=== PATIENT | female | born 1970 | race Caucasian/White ===

== ENCOUNTER 2016-10-26 15:30 | Emergency (ER) | payer OTHER ==
[2016-10-26 15:39] VITALS: BP 98/56; PULSE 83; TEMP 98.1; BMI 30.8
[2016-10-26] MEDS ORDERED: SODIUM CHLORIDE 1,000 ML IV STA ×2 (16:26→17:42)
[2016-10-26] MEDS ORDERED: FAMOTIDINE 20 MG/50 ML IVPB 50 ML IVPB ONE ×2 (16:26→16:51)
[2016-10-26] MEDS ORDERED: ONDANSETRON 4 MG/2 ML VIAL IVPB ONE (16:26)
[2016-10-26] MEDS ORDERED: ONDANSETRON 4 MG/2 ML VIAL ONE (16:51)
--- NOTE | 2016-10-26 17:03 | PDOC ---
History of Present Illness - General History Source: Patient Exam Limitations: No Limitations - History of Present Illness Initial Comments: 10/26/16 17:54 The patient is a 46 year old female, with a significant past medical history of recent gastric sleeve (May 2016 - [facility]), anxiety and depression, who presents to the emergency department with generalized weakness worsening in the past two days. The patient reports feeling nauseous in addition to a decreased appetite. The patient reports a 90 lb weight loss since her surgery. The patient reports 3 ER visits for similar symptoms since her gastric sleeve surgery. The patient reports that she was driving today and felt particularly weak so she came to the ED for evaluation. The patient denies fever , chills, cough, vomiting or abdominal pain. Allergies: Doxycycline. Past Surgical History: Cholecystectomy; Partial Hysterectomy; Gastric Sleeve ( May 2016) Social History: Former smoker (quit in 2002). Denies alcohol or drug use. PCP: Dr. Hardy Diehl <Kerry Bui - Last Filed: 10/26/16 17:57> - General History Source: Patient Exam Limitations: No Limitations <Luciano Tesfaye - Last Filed: 10/26/16 18:49> - General Chief Complaint: Weakness Stated Complaint: SENT BY PCP Time Seen by Provider: 10/26/16 16:09 Past History <Kerry Bui - Last Filed: 10/26/16 17:57> - Past Medical History Anemia: Yes Asthma: No Cancer: No Cardiac Disorders: No CVA: No COPD: No CHF: No Dementia: No Diabetes: No GI Disorders: Yes (GERD) Disorders: Yes (HEMATURIA) HTN: No Hypercholesterolemia: No Liver Disease: No Psychiatric Problems: Yes (ANXIETY/DEPRESSION) Suicide Attempt (Hx): No Seizures: No Thyroid Disease: No - Surgical History Abdominal Surgery: Yes Appendectomy: No Cardiac Surgery: No Cholecystectomy: Yes (2004) GI Surgery: Yes (GASTRIC SLEEVE-06/13) Lung Surgery: No Neurologic Surgery: No Orthopedic Surgery: No - Immunization History Immunization Up to Date: Yes - Psycho/Social/Smoking Cessation Hx Anxiety: Yes Suicidal Ideation: No Smoking Status: Yes Smoking History: Current some day smoker Have you smoked in the past 12 months: No Number of Cigarettes Smoked Daily: 0 If you are a former smoker, when did you quit?: 2002 Information on smoking cessation initiated: No Hx Alcohol Use: No Drug/Substance Use Hx: No Substance Use Type: None Hx Substance Use Treatment: No <Luciano Tesfaye - Last Filed: 10/26/16 18:49> - Past Medical History Allergies/Adverse Reactions: Allergies Allergy/AdvReac Type Severity Reaction Status Date / Time doxycycline Allergy Rash Verified 10/26/16 15:34 Home Medications: Ambulatory Orders Clonazepam 2 mg PO BID 03/13/14 Quetiapine Fumarate [Seroquel -] 50 mg PO BID 04/26/14 Naproxen [Naprosyn -] 500 mg PO BID #14 tablet 12/13/14 Cephalexin [Keflex] 500 mg PO BID #14 capsule 10/26/16 Ferrous Sulfate 325 mg PO DAILY 10/26/16 Lexapro - 20 mg PO DAILY 10/26/16 Ondansetron HCl [Zofran] 4 mg PO Q6H PRN #15 tablet 10/26/16 Pantoprazole Sodium [Protonix] 40 mg PO DAILY 10/26/16 Vitamin A 10,000 iu PO DAILY 10/26/16 Review of Systems - Review of Systems Able to Perform ROS?: Yes Comments:: 10/26/16 17:07 GENERAL/CONSTITUTIONAL: +Weakness, decreased appetite. No fever or chills. HEAD, EYES, EARS, NOSE AND THROAT: No change in vision. No ear pain or discharge. No sore throat. CARDIOVASCULAR: No chest pain or shortness of breath. RESPIRATORY: No cough, wheezing, or hemoptysis. GASTROINTESTINAL: +Nausea. No vomiting, diarrhea or constipation. GENITOURINARY: No dysuria, frequency, or change in urination. MUSCULOSKELETAL: No joint or muscle swelling or pain. No neck or back pain. SKIN: No rash. NEUROLOGIC: No headache, vertigo, loss of consciousness, or change in strength/ sensation. ENDOCRINE: No increased thirst. No abnormal weight change. HEMATOLOGIC/LYMPHATIC: No anemia, easy bleeding, or history of blood clots. ALLERGIC/IMMUNOLOGIC: No hives or skin allergy. <Kerry Bui - Last Filed: 10/26/16 17:57> *Physical Exam - Vital Signs Last Vital Signs Temp Pulse Resp BP Pulse Ox 98.1 F 83 19 98/56 98 10/26/16 15:34 10/26/16 15:34 10/26/16 15:34 10/26/16 15:34 10/26/16 15:34 - Physical Exam Comments: 10/26/16 17:07 GENERAL: Awake, alert, and fully oriented, in no acute distress. HEAD: No signs of trauma. EYES: PERRLA, EOMI, sclera anicteric, conjunctiva clear. ENT: Dry mucosa. Auricles normal inspection, hearing grossly normal, nares patent, oropharynx clear without exudates. NECK: Normal ROM, supple, no lymphadenopathy, JVD, or masses. LUNGS: Breath sounds equal, clear to auscultation bilaterally. No wheezes, and no crackles. HEART: Regular rate and rhythm, normal S1 and S2, no murmurs, rubs or gallops. ABDOMEN: Soft, nontender, normoactive bowel sounds. No guarding, no rebound. No masses. EXTREMITIES: Normal range of motion, no edema. No clubbing or cyanosis. No cords, erythema, or tenderness. NEUROLOGICAL: Cranial nerves II through XII intact. Normal speech, normal gait. SKIN: Warm, dry, normal turgor, no rashes or lesions noted. <Kerry Bui - Last Filed: 10/26/16 17:57> - Vital Signs Last Vital Signs Temp Pulse Resp BP Pulse Ox 98.1 F 83 19 98/56 98 10/26/16 15:34 10/26/16 15:34 10/26/16 15:34 10/26/16 15:34 10/26/16 15:34 <Luciano Tesfaye - Last Filed: 10/26/16 18:49> ED Treatment Course - LABORATORY CBC & Chemistry Diagram: 10/26/16 16:20 10/26/16 16:20 - Medications Given in the ED: ED Medications Discontinued Medications Generic Name Dose Route Start Last Admin Trade Name Freq PRN Reason Stop Dose Admin Famotidine/Sodium Chloride 50 mls @ 100 mls/hr 10/26/16 16:26 10/26/16 16:51 Pepcid 20 Mg Premixed Ivpb - IVPB 10/26/16 16:55 100 mls/hr ONCE ONE Administration Ondansetron HCl 4 mg 10/26/16 16:26 10/26/16 16:51 Zofran Injection IVPB 10/26/16 16:27 4 mg ONCE ONE Administration <DanielsEduardaKerry - Last Filed: 10/26/16 17:57> - LABORATORY CBC & Chemistry Diagram: 10/26/16 16:20 10/26/16 16:20 - Medications Given in the ED: ED Medications Discontinued Medications Generic Name Dose Route Start Last Admin Trade Name Deanna PRN Reason Stop Dose Admin Famotidine/Sodium Chloride 50 mls @ 100 mls/hr 10/26/16 16:26 10/26/16 16:51 Pepcid 20 Mg Premixed Ivpb - IVPB 10/26/16 16:55 100 mls/hr ONCE ONE Administration Ondansetron HCl 4 mg 10/26/16 16:26 10/26/16 16:51 Zofran Injection IVPB 10/26/16 16:27 4 mg ONCE ONE Administration <Luciano Tesfaye - Last Filed: 10/26/16 18:49> Medical Decision Making - Medical Decision Making 10/26/16 17:02 A portion of this note was written by my scribe, under my supervision. Vital Signs Temp Pulse Resp BP Pulse Ox 98.1 F 83 19 98/56 98 10/26/16 15:34 10/26/16 15:34 10/26/16 15:34 10/26/16 15:34 10/26/16 15:34 46 year old female with hx of gastric sleeve 4 months ago at [facility] presents with nausea, decreased appetite and weakness worsened in the last several days. The patient has reported that she lost 90 lbs since her gastric sleeve. Reports that she has been eating very little since her surgery. States that he was in the ER 3 times prior since her gastric sleeve for dehydration. Pt denies any abdominal pain, fevers, chills, cough, vomiting. Does reports feeling nauseous. The patient reports feeling generally weak and came into the ED. I suspect that the patient is weak 2/2 dehydration from her gastric sleeve. Will check labs for electrolyte abnormalities and give IVF. Treat symptoms and reassess. 10/26/16 18:42 CBC, BMP 10/26/16 16:20 10/26/16 16:20 CMP Sodium 140 mmol/L (136-145) 10/26/16 16:20 Potassium 3.9 mmol/L (3.5-5.1) 10/26/16 16:20 Chloride 104 mmol/L (98-107) 10/26/16 16:20 Carbon Dioxide 25 mmol/L (21-32) 10/26/16 16:20 Anion Gap 11 (8-16) 10/26/16 16:20 BUN 12 mg/dL (7-18) 10/26/16 16:20 Creatinine 0.7 mg/dL (0.55-1.02) 10/26/16 16:20 Creat Clearance w eGFR > 60 (>60) 10/26/16 16:20 Random Glucose 75 mg/dL (74-106) 10/26/16 16:20 Calcium 8.3 mg/dL (8.5-10.1) L 10/26/16 16:20 Magnesium 1.9 mg/dL (1.8-2.4) 10/26/16 16:20 Total Bilirubin 0.3 mg/dL (0.2-1.0) D 10/26/16 16:20 AST 33 U/L (15-37) 10/26/16 16:20 ALT 20 U/L (12-78) 10/26/16 16:20 Alkaline Phosphatase 84 U/L (45-117) 10/26/16 16:20 Creatine Kinase 67 IU/L (26-192) 10/26/16 16:20 Troponin I < 0.02 ng/ml (0.00-0.05) 10/26/16 16:20 Total Protein 6.6 g/dl (6.4-8.2) 10/26/16 16:20 Albumin 3.1 g/dl (3.4-5.0) L 10/26/16 16:20 TSH 1.44 uIU/ml (0.358-3.74) 10/26/16 16:20 Serum , Qual Negative 10/26/16 16:45 Urine Test Results Urine Color Yellow 10/26/16 16:45 Urine Appearance Slcloudy 10/26/16 16:45 Urine pH 5.0 (5.0-8.0) 10/26/16 16:45 Ur Specific [place] 1.032 (1.001-1.035) 10/26/16 16:45 Urine Protein Negative (NEGATIVE) 10/26/16 16:45 Urine Glucose (UA) Negative (NEGATIVE) 10/26/16 16:45 Urine Ketones Negative (NEGATIVE) 10/26/16 16:45 Urine Blood Negative (NEGATIVE) 10/26/16 16:45 Urine Nitrite Negative (NEGATIVE) 10/26/16 16:45 Urine Bilirubin Negative (NEGATIVE) 10/26/16 16:45 Ur Leukocyte Esterase 3+ (NEGATIVE) H 10/26/16 16:45 The patient reports feeling better after the IV fluids. Pt is noted to have 3+ leuk. Prior microbiology reviewed. Keflex ordered. Will prescribe zofran and have patient follow up with her bariatric surgeon and PMD. Discharge diagnosis: dehydration I discussed the physical exam findings, ancillary test results and final diagnoses with the patient. I answered all of the patient's questions. The patient was satisfied with the care received and felt comfortable with the discharge plan and treatment plan. The patient will call their primary care physician within 24 hours to arrange follow-up and will return to the Emergency Department with any new, persistant or worsening symptoms. <Luciano Tesfaye - Last Filed: 10/26/16 18:49> *DC/Admit/Observation/Transfer - Attestations Scribe Attestion: 10/26/16 17:06 Documentation prepared by Kerry Bui, acting as medical technologist blood bank for Luciano Tesfaye MD. <Kerry Bui - Last Filed: 10/26/16 17:57> <Luciano Tesfaye - Last Filed: 10/26/16 18:49> Diagnosis at time of Disposition: Dehydration UTI (urinary tract infection) Qualifiers: Urinary tract infection type: site unspecified Hematuria presence: without hematuria Qualified Code(s): N39.0 - Urinary tract infection, site not specified - Discharge Dispostion Disposition: HOME Condition at time of disposition: Improved - Prescriptions Prescriptions: Cephalexin [Keflex] 500 mg PO BID #14 capsule Ondansetron HCl [Zofran] 4 mg PO Q6H PRN #15 tablet PRN Reason: Nausea - Referrals Referrals: Alistair Diehl MD [Primary Care Provider] - - Patient Instructions Printed Discharge Instructions: DI for Dehydration -- Adult, DI for Urinary Tract Infection (UTI) Additional Instructions: Take 500 mg keflex every 12 hours for the next 7 days for an urinary tract infection. Take 4 mg zofran every 6 hours as needed for nausea. Please follow up with your bariatric surgeon and your primary care physician.
[2016-10-26 17:54] LABS: BASOPHIL 0.5 % (0-2.0); EOSINOPHIL 1.9 % (0-4.5); MCH 24.8 pg (25.7-33.7); MCHC 32.6 g/dl (32.0-36.0); MEAN CELL VOLUME 76.2 fl (80-96); MEAN PLT VOLUME 9.1 fl (7.5-11.1); NEUTROPHILS 67.2 % (42.8-82.8); PLATELET COUNT 268 K/MM3 (134-434); RDW 16.5 % (11.6-15.6); WHITE BLOOD COUNT 9.5 K/mm3 (4.0-10.0)
[2016-10-26 18:01] LABS: URINE APPEARANCE SLCLOUDY; URINE BILIRUBIN NEGATIVE (NEGATIVE); URINE BLOOD NEGATIVE (NEGATIVE); URINE COLOR YELLOW; URINE GLUCOSE (UA) NEGATIVE (NEGATIVE); URINE KETONE NEGATIVE (NEGATIVE); URINE NITRITE NEGATIVE (NEGATIVE); URINE PROTEIN NEGATIVE (NEGATIVE); URINE UROBILINOGEN NEGATIVE E.U./dl (0.2-1.0)
[2016-10-26 18:08] LABS: INR 1.09 (0.82-1.09)
[2016-10-26 18:11] LABS: ACTIVATED PTT 38.1 SECONDS (26.9-34.4)
[2016-10-26 18:17] LABS: URINE LEUK ESTERASE 3+ (NEGATIVE)
[2016-10-26 18:18] LABS: ALBUMIN 3.1 g/dl (3.4-5.0); ANION GAP 11 (8-16); BILIRUBIN,TOTAL 0.3 mg/dL (0.2-1.0); CALCIUM 8.3 mg/dL (8.5-10.1); CO2 25 mmol/L (21-32); CREATININE 0.7 mg/dL (0.55-1.02); GLUCOSE,RANDOM 75 mg/dL (74-106); MAGNESIUM 1.9 mg/dL (1.8-2.4); SGOT/AST 33 U/L (15-37); SGPT/ALT 20 U/L (12-78); TOT PROT 6.6 g/dl (6.4-8.2)
[2016-10-26 18:26] LABS: ALK PHOS 84 U/L (45-117); THYROID STIMULATING HORMONE 1.44 uIU/ml (0.358-3.74); TROPONIN I < 0.02 ng/ml (0.00-0.05)
[2016-10-26] MEDS ORDERED: CEPHALEXIN MONOHYDRATE 500 MG CAPSULE (UD) PO ONE (18:40)
[2016-10-26] MEDS ORDERED: CEPHALEXIN MONOHYDRATE 250 MG CAPSULE (FP) ONE (19:03)
[2016-10-27 00:15] LABS: CALCIUM OXALATE CRYSTALS FEW /hpf (NONE SEEN); URINE BACTERIA MANY /hpf (NONE SEEN); URINE RBC 4 /hpf (0-3); URINE WBC 20 /hpf (3-5)
--- NOTE | 2016-10-27 12:20 | EKG ---
Test Reason : Blood Pressure : / mmHG Vent. Rate : 060 BPM Atrial Rate : 060 BPM P-R Int : 124 ms QRS Dur : 070 ms QT Int : 444 ms P-R-T Axes : 038 019 015 degrees QTc Int : 444 ms NORMAL SINUS RHYTHM LOW VOLTAGE QRS BORDERLINE ECG WHEN COMPARED WITH ECG OF 26-APR-2014 11:39, NO SIGNIFICANT CHANGE WAS FOUND Confirmed by FITO MUÑIZ MD ([id number]) on 10/27/2016 12:20:02 PM Referred By: Confirmed By:FITO MUÑIZ MD
== END 2016-10-26 19:14 | disposition home or self-care (01) ==
LOC: JER 15:30
PROC: 3E033GC Introduction of Other Therapeutic Substance into Peripheral Vein, Percutaneous Approach (ICD-10-PCS; principal; 2016-10-26)
DX: E86.0 Dehydration (principal); N39.0 Urinary tract infection, site not specified; Z98.84 Bariatric surgery status
CPT/HCPCS: 36415; 80053; 81003; 81015; 82550; 83735; 84443; 84484; 84703; 85025; 85610; 85730; 87086; 93005; 93010; 96365; 96375; 99285-25

== ENCOUNTER 2017-04-23 11:59 | Emergency (ER) | payer OTHER ==
--- NOTE | 2017-04-23 12:17 | PDOC ---
History of Present Illness - General Chief Complaint: Weakness Stated Complaint: WEAKNESS Time Seen by Provider: 04/23/17 12:16 - History of Present Illness Initial Comments: 04/23/17 12:17 Ms. Howell is a 46 year old female with a significant past medical history of significant past medical history of recent gastric sleeve (May 2016 - [facility]) who presents to the emergency department with a 2 week history of lack of energy, nausea, vomiting, dizziness, headache and diarrhea. She further complains of lack of appetite but says that snickers ice cream and cool ranch doritos are palatable to her. She also complains of recent fishy vaginal odor after unprotected sex for the last several months. The patient denies chest pain and shortness of breath. Denies fever, chills, nausea, vomit, and constipation. Denies dysuria, frequency, urgency and hematuria. Allergies: Doxycycline Past surgical history: As above Past History - Past Medical History Allergies/Adverse Reactions: Allergies Allergy/AdvReac Type Severity Reaction Status Date / Time doxycycline Allergy Rash Verified 04/23/17 12:32 Home Medications: Ambulatory Orders Clonazepam 2 mg PO BID 03/13/14 Quetiapine Fumarate [Seroquel -] 50 mg PO BID 04/26/14 Naproxen [Naprosyn -] 500 mg PO BID #14 tablet 12/13/14 Cephalexin [Keflex] 500 mg PO BID #14 capsule 10/26/16 Ferrous Sulfate 325 mg PO DAILY 10/26/16 Lexapro - 20 mg PO DAILY 10/26/16 Ondansetron HCl [Zofran] 4 mg PO Q6H PRN #15 tablet 10/26/16 Pantoprazole Sodium [Protonix] 40 mg PO DAILY 10/26/16 Vitamin A 10,000 iu PO DAILY 10/26/16 Anemia: Yes Asthma: No Cancer: No Cardiac Disorders: No CVA: No COPD: No CHF: No Dementia: No Diabetes: No GI Disorders: Yes (GERD) Disorders: Yes (HEMATURIA) HTN: No Hypercholesterolemia: No Liver Disease: No Psychiatric Problems: Yes (ANXIETY/DEPRESSION) Seizures: No Thyroid Disease: No - Surgical History Abdominal Surgery: Yes Appendectomy: No Cardiac Surgery: No Cholecystectomy: Yes (2004) GI Surgery: Yes (GASTRIC SLEEVE-06/13) Lung Surgery: No Neurologic Surgery: No Orthopedic Surgery: No - Immunization History Immunization Up to Date: Yes - Suicide/Smoking/Psychosocial Hx Smoking Status: Yes Smoking History: Current some day smoker Have you smoked in the past 12 months: No Number of Cigarettes Smoked Daily: 0 If you are a former smoker, when did you quit?: 2002 Hx Alcohol Use: No Drug/Substance Use Hx: No Substance Use Type: None Hx Substance Use Treatment: No Review of Systems - Review of Systems Comments:: 04/23/17 12:17 GENERAL/CONSTITUTIONAL: No fever or chills. No weakness. HEAD, EYES, EARS, NOSE AND THROAT: No change in vision. No ear pain or discharge. No sore throat. CARDIOVASCULAR: No chest pain or shortness of breath RESPIRATORY: No cough, wheezing, or hemoptysis. GASTROINTESTINAL: +Nausea with occasional vomiting and diarrhea. GENITOURINARY: +Recent fishy odor from vagina. No dysuria, frequency, or change in urination. MUSCULOSKELETAL: No joint or muscle swelling or pain. No neck or back pain. SKIN: No rash NEUROLOGIC: +Recent headache. No vertigo, loss of consciousness, or change in strength/sensation. ENDOCRINE: No increased thirst. No abnormal weight change HEMATOLOGIC/LYMPHATIC: No anemia, easy bleeding, or history of blood clots. ALLERGIC/IMMUNOLOGIC: No hives or skin allergy. *Physical Exam - Physical Exam Comments: 04/23/17 12:17 GENERAL: Awake, alert, and fully oriented, in no acute distress HEAD: No signs of trauma, normocephalic, atraumatic EYES: PERRLA, EOMI, sclera anicteric, conjunctiva clear ENT: Auricles normal inspection, hearing grossly normal, nares patent, oropharynx clear without exudates. Moist mucosa NECK: Normal ROM, supple, no lymphadenopathy, JVD, or masses LUNGS: No distress, speaks full sentences, clear to auscultation bilaterally HEART: Regular rate and rhythm, normal S1 and S2, no murmurs, rubs or gallops, peripheral pulses normal and equal bilaterally. ABDOMEN: Soft, nontender, normoactive bowel sounds. No guarding, no rebound. No masses EXTREMITIES: Normal inspection, Normal range of motion, no edema. No clubbing or cyanosis. NEUROLOGICAL: Cranial nerves II through XII grossly intact. Normal speech, normal gait, no focal sensorimotor deficits SKIN: Warm, Dry, normal turgor, no rashes or lesions noted. VAGINAL: +White exudate consistent with yeast infection with consistent odor noted. No cervical motion tenderness or masses appreciated. ED Treatment Course - LABORATORY CBC & Chemistry Diagram: 04/23/17 13:18 04/23/17 13:18 Medical Decision Making - Medical Decision Making 04/23/17 15:10 Ms Howell presents for evaluation of fishy vaginal odor and non-specific abdominal symptoms. Patient related she eats mostly doritos and ice cream, advised to improve diet and follow-up with surgeon if having continued gastric sleeve related symptoms. Diflucan given for yeast infection. STI check normal as below. GC/Chlamydia results will be communicated if positive. Laboratory Results - last 24 hr 04/23/17 04/23/17 04/23/17 13:18 13:18 13:18 WBC 9.5 RBC 5.28 H Hgb 13.6 D Hct 42.5 MCV 80.4 MCH 25.8 MCHC 32.0 RDW 15.8 H Plt Count 322 D MPV 8.0 D Neutrophils % 73.4 Lymphocytes % 17.8 D Monocytes % 6.4 Eosinophils % 1.4 Basophils % 1.0 Sodium 139 Potassium 4.1 Chloride 104 Carbon Dioxide 28 Anion Gap 7 L BUN 12 Creatinine 0.7 Creat Clearance w eGFR > 60 Random Glucose 73 L Calcium 8.4 L Total Bilirubin 0.4 D AST 32 ALT 21 Alkaline Phosphatase 86 Total Protein 7.2 Albumin 3.5 Urine Color Yellow Urine Appearance Slcloudy Urine pH 5.0 Urine Protein Negative Urine Glucose (UA) Negative Urine Ketones Negative Urine Blood 1+ H Urine Nitrite Negative Urine Bilirubin Negative Urine Urobilinogen Negative Urine RBC 3 Urine WBC 4 Ur Epithelial Cells Few Urine Mucus Many Urine HCG, Qual Negative HIV 1&2 Antibody Screen HIV P24 Antigen 04/23/17 13:28 WBC RBC Hgb Hct MCV MCH MCHC RDW Plt Count MPV Neutrophils % Lymphocytes % Monocytes % Eosinophils % Basophils % Sodium Potassium Chloride Carbon Dioxide Anion Gap BUN Creatinine Creat Clearance w eGFR Random Glucose Calcium Total Bilirubin AST ALT Alkaline Phosphatase Total Protein Albumin Urine Color Urine Appearance Urine pH Urine Protein Urine Glucose (UA) Urine Ketones Urine Blood Urine Nitrite Urine Bilirubin Urine Urobilinogen Urine RBC Urine WBC Ur Epithelial Cells Urine Mucus Urine HCG, Qual HIV 1&2 Antibody Screen Negative HIV P24 Antigen Negative *DC/Admit/Observation/Transfer Diagnosis at time of Disposition: Yeast infection - Discharge Dispostion Disposition: HOME - Referrals Referrals: Hardy Diehl MD [Primary Care Provider] - - Patient Instructions Printed Discharge Instructions: DI for Vaginal Yeast Infection
[2017-04-23 12:32] VITALS: BMI 25.0
[2017-04-23] MEDS ORDERED: SODIUM CHLORIDE 1,000 ML IV STA (12:36)
--- NOTE | 2017-04-23 12:48 | PDOC ---
Attending Attestation - Resident Resident Name: Matt Jacob - ED Attending Attestation I have performed the following: I have examined & evaluated the patient, The case was reviewed & discussed with the resident, I agree w/resident's findings & plan, Exceptions are as noted - HPI HPI: 04/23/17 12:46 multiple complaints/ non emergent - Physicial Exam PE: 04/23/17 12:47 VSS NAD - Medical Decision Making 04/23/17 12:[address] Jacob's assessment and plan
[2017-04-23] MEDS ORDERED: FLUCONAZOLE 50 MG TABLET PO ONE (13:04)
[2017-04-23 13:40] LABS: EOSINOPHIL 1.4 % (0-4.5); MCH 25.8 pg (25.7-33.7); MEAN CELL VOLUME 80.4 fl (80-96); NEUTROPHILS 73.4 % (42.8-82.8); PLATELET COUNT 322 K/MM3 (134-434); RDW 15.8 % (11.6-15.6); WHITE BLOOD COUNT 9.5 K/mm3 (4.0-10.0)
[2017-04-23 13:50] LABS: URINE APPEARANCE SLCLOUDY; URINE BILIRUBIN NEGATIVE (NEGATIVE); URINE BLOOD 1+ (NEGATIVE); URINE COLOR YELLOW; URINE GLUCOSE (UA) NEGATIVE (NEGATIVE); URINE KETONE NEGATIVE (NEGATIVE); URINE LEUK ESTERASE NEGATIVE (NEGATIVE); URINE NITRITE NEGATIVE (NEGATIVE); URINE PROTEIN NEGATIVE (NEGATIVE); URINE UROBILINOGEN NEGATIVE mg/dL (0.2-1.0)
[2017-04-23 14:14] LABS: ALBUMIN 3.5 g/dl (3.4-5.0); ALK PHOS 86 U/L (45-117); ANION GAP 7 (8-16); BILIRUBIN,TOTAL 0.4 mg/dL (0.2-1.0); CALCIUM 8.4 mg/dL (8.5-10.1); CO2 28 mmol/L (21-32); CREATININE 0.7 mg/dL (0.55-1.02); GLUCOSE,RANDOM 73 mg/dL (74-106); SGOT/AST 32 U/L (15-37); SGPT/ALT 21 U/L (12-78); TOT PROT 7.2 g/dl (6.4-8.2); URINE MUCUS MANY; URINE RBC 3 /hpf (0-3); URINE WBC 4 /hpf (3-5)
[2017-04-23 15:12] LABS: HIV 1 & 2 AB NEGATIVE; HIV 1 AGp24 NEGATIVE
[2017-04-23 16:09] VITALS: BP 109/63; PULSE 68; TEMP 98.1
== END 2017-04-23 16:12 | disposition home or self-care (01) ==
LOC: JER 11:59
PROC: 3E0337Z Introduction of Electrolytic and Water Balance Substance into Peripheral Vein, Percutaneous Approach (ICD-10-PCS; principal; 2017-04-23)
DX: B37.9 Candidiasis, unspecified (principal); Z98.84 Bariatric surgery status; F41.8 Other specified anxiety disorders; K21.9 Gastro-esophageal reflux disease without esophagitis; D64.9 Anemia, unspecified; F17.210 Nicotine dependence, cigarettes, uncomplicated
CPT/HCPCS: 36415; 80053; 81003; 81015; 84703; 85025; 87389; 87491; 87591; 99285-25

== ENCOUNTER 2017-08-26 22:40 | Emergency (ER) | payer OTHER ==
[2017-08-26 22:45] VITALS: BP 144/85; PULSE 78; TEMP 98.6; BMI 24.3
[2017-08-26 23:03] LABS: HCG,QUALITATIVE URINE NEGATIVE; URINE APPEARANCE CLEAR; URINE BILIRUBIN NEGATIVE (NEGATIVE); URINE BLOOD 1+ (NEGATIVE); URINE COLOR LTYELLOW; URINE GLUCOSE (UA) NEGATIVE (NEGATIVE); URINE KETONE NEGATIVE (NEGATIVE); URINE NITRITE NEGATIVE (NEGATIVE); URINE PROTEIN NEGATIVE (NEGATIVE); URINE UROBILINOGEN NEGATIVE mg/dL (0.2-1.0)
[2017-08-26 23:05] LABS: URINE LEUK ESTERASE 1+ (NEGATIVE)
[2017-08-26] MEDS ORDERED: KETOROLAC TROMETHAMINE 30 MG/1 ML VIAL IVPUSH ONE (23:18)
[2017-08-26] MEDS ORDERED: SODIUM CHLORIDE 1,000 ML IV STA (23:18)
[2017-08-26] MEDS ORDERED: ACETAMINOPHEN 325 MG TABLET (FP) PO ONE (23:18)
[2017-08-26 23:24] LABS: EPI CELLS RARE /HPF (FEW); URINE BACTERIA RARE /hpf (NONE SEEN); URINE MUCUS FEW
[2017-08-26] MEDS ORDERED: ACETAMINOPHEN 325 MG TABLET (FP) ONE (23:28)
--- NOTE | 2017-08-26 23:28 | PDOC ---
History of Present Illness - General Chief Complaint: Urinary Problem Stated Complaint: PAIN Time Seen by Provider: 08/26/17 22:56 History Source: Patient Exam Limitations: No Limitations - History of Present Illness Initial Comments: 08/26/17 23:23 46yoF hx of gastric sleeve, multiple ED presentations for vague abdominal pain since proceudre and dehydration presents w/ 3 weeks of constitutional/urinary symptoms consisting of pain w/ urination, foul urine odor, frequent urination, malaise, headaches, vage abdominal pains now prsents w/ acute onset of diffuse back pain tonight. No clear trigger,+ chills, no documented fevers, no n/v/d, pt endorses drinking "lots of water" over past few weeks for symptoms. Past History - Past Medical History Allergies/Adverse Reactions: Allergies Allergy/AdvReac Type Severity Reaction Status Date / Time doxycycline Allergy Rash Verified 04/23/17 12:32 Home Medications: Ambulatory Orders Clonazepam 2 mg PO BID 03/13/14 Quetiapine Fumarate [Seroquel -] 50 mg PO BID 04/26/14 Lexapro - 20 mg PO DAILY 10/26/16 Phenazopyridine HCl [Pyridium] 200 mg PO TID PRN 3 Days #9 tablet MDD 3 Anemia: Yes Asthma: No Cancer: No Cardiac Disorders: No CVA: No COPD: No CHF: No Dementia: No Diabetes: No GI Disorders: Yes (GERD) Disorders: Yes (HEMATURIA) HTN: No Hypercholesterolemia: No Liver Disease: No Psychiatric Problems: Yes (ANXIETY/DEPRESSION) Seizures: No Thyroid Disease: No Comment:: 08/26/17 23:27 As per HPI - Surgical History Abdominal Surgery: Yes Appendectomy: No Cardiac Surgery: No Cholecystectomy: Yes (2004) GI Surgery: Yes (GASTRIC SLEEVE-06/13) Lung Surgery: No Neurologic Surgery: No Orthopedic Surgery: No Comments:: 08/26/17 23:27 as per HPI - Immunization History Immunization Up to Date: Yes - Suicide/Smoking/Psychosocial Hx Smoking Status: Yes Smoking History: Current some day smoker Have you smoked in the past 12 months: No Number of Cigarettes Smoked Daily: 2 If you are a former smoker, when did you quit?: 2002 Information on smoking cessation initiated: No Hx Alcohol Use: No Drug/Substance Use Hx: No Substance Use Type: None Hx Substance Use Treatment: No Review of Systems - Review of Systems Comments:: 08/26/17 23:27 as per HPI All Other Systems: Reviewed and Negative *Physical Exam - Vital Signs Last Vital Signs Temp Pulse Resp BP Pulse Ox 98.6 F 78 18 144/85 100 08/26/17 22:42 08/26/17 22:42 08/26/17 22:42 08/26/17 22:42 08/26/17 22:42 - Physical Exam Comments: 08/26/17 23:28 NAD EOMI, CHRIS MMM, OP WNL NCAT, no midline cervical tenderness RRR, nl s1/s2, no m/r/g CTABL, no w/r/r + diffuse tap tenderness to back, ? R CVAT increased over remainder. Soft, NTND No edema, WWP, no rash Neuro grossly intact, gait WNL, moving all 4 A&O x 3, mood/affect WNL. ED Treatment Course - LABORATORY CBC & Chemistry Diagram: 08/26/17 23:37 08/26/17 23:37 - ADDITIONAL ORDERS Additional order review: Laboratory Results 08/26/17 Unknown Urine Color Ltyellow Urine Appearance Clear Urine pH 6.0 Ur Specific [place] 1.014 Urine Protein Negative Urine Glucose (UA) Negative Urine Ketones Negative Urine Blood 1+ H Urine Nitrite Negative Urine Bilirubin Negative Urine Urobilinogen Negative Ur Leukocyte Esterase 1+ H Urine HCG, Qual Negative Medical Decision Making - Medical Decision Making 08/26/17 23:29 46yoF hx of psych and gastric bypass presentse w/ multiple symptoms over 3 weeks , poor historian however seems to have predominantly urinary symptoms and now has developed diffuse back pain. UA, however, with only 1+ LE. - labs - UCx sent - ivf, pain control - CXR - reeval. 08/27/17 02:30 labs unremarkable. WBC WNL, renal function WNL. UA w/ 1+ blood and 1+ LE UCx sent to lab. Pt sleeping comfortably after toradol/tylenol/ivf. Pain resolved. CXR reviewed and lungs clear by my read. Will DC w/ short course of pyridium. No abx at this time pending UCx results. *DC/Admit/Observation/Transfer Diagnosis at time of Disposition: Back pain, Anxiety - Discharge Dispostion Disposition: HOME Condition at time of disposition: Good Admit: No - Prescriptions Prescriptions: Phenazopyridine HCl [Pyridium] 200 mg PO TID PRN 3 Days #9 tablet MDD 3 PRN Reason: pain with urination - Referrals Referrals: Hardy Diehl MD [Primary Care Provider] - - Patient Instructions Additional Instructions: See your primary doctor this week. Take tylenol for pain Take ibuprofen for pain if tylenol is not helping. prescriptions have been sent to your designated pharmacy for: pyridium Take for only 3 days, this medication will turn all secretions ORANGE (tears, sweat, urine, saliva, etc) Return to your normal fluid intake. return to the ER for: fever over 101 unable to tolerate food or drink. - Post Discharge Activity
[2017-08-26 23:44] LABS: BASO % 0.8 % (0-2.0); EOS % 2.3 % (0-4.5); HEMATOCRIT 40.6 % (32.4-45.2); HEMOGLOBIN 13.2 GM/dL (10.7-15.3); LYMPH % 29.3 % (8-40); MCH 26.2 pg (25.7-33.7); MCHC 32.4 g/dl (32.0-36.0); MEAN CELL VOLUME 80.8 fl (80-96); MEAN PLT VOLUME 7.7 fl (7.5-11.1); MONO % 8.4 % (3.8-10.2); NEUT % 59.2 % (42.8-82.8); PLATELET COUNT 263 K/MM3 (134-434); RBC 5.03 M/mm3 (3.60-5.2); RDW 13.4 % (11.6-15.6); WHITE BLOOD COUNT 7.9 K/mm3 (4.0-10.0)
[2017-08-27 00:16] LABS: ANION GAP 8 (8-16); BLOOD UREA NITROGEN 16 mg/dL (7-18); CALCIUM 8.7 mg/dL (8.5-10.1); CHLORIDE 103 mmol/L (98-107); CO2 29 mmol/L (21-32); CREATININE 0.8 mg/dL (0.55-1.02); GLUCOSE,RANDOM 80 mg/dL (74-106); POTASSIUM 3.7 mmol/L (3.5-5.1); SODIUM 140 mmol/L (136-145)
[2017-08-27] MEDS ORDERED: KETOROLAC TROMETHAMINE 30 MG/1 ML VIAL ONE (01:07)
--- NOTE | 2017-08-29 07:52 | PDOC ---
Patient Follow-up (Call Back) - Post ED Follow - Up Condition at time of discharge: Good Disposition at time of original discharge: HOME Reason for Call Back: Abnwl. Microbiology (Patient saw her PCP on 08/28/17 and he prescribed her Levaquin. She states she is already feeling better)
== END 2017-08-27 03:38 | disposition home or self-care (01) ==
LOC: JER 22:40
PROC: 3E0337Z Introduction of Electrolytic and Water Balance Substance into Peripheral Vein, Percutaneous Approach (ICD-10-PCS; principal; 2017-08-26)
PROC: 3E0333Z Introduction of Anti-inflammatory into Peripheral Vein, Percutaneous Approach (ICD-10-PCS; 2017-08-26)
DX: M54.5 Low back pain (principal); F41.9 Anxiety disorder, unspecified; Z98.84 Bariatric surgery status; K21.9 Gastro-esophageal reflux disease without esophagitis; F17.210 Nicotine dependence, cigarettes, uncomplicated
CPT/HCPCS: 36415; 71046-TC; 80048; 81003; 81015; 84702; 84703; 85025; 87086; 87186; 96361; 96374; 99282-25

== ENCOUNTER 2017-10-16 09:09 | Emergency (ER) | payer OTHER ==
[2017-10-16 09:16] VITALS: TEMP 98.7; BMI 25.5
--- NOTE | 2017-10-16 09:22 | PDOC ---
History of Present Illness - General Chief Complaint: Lightheaded Stated Complaint: DEHYDRATED - History of Present Illness Initial Comments: 10/16/17 11:42 HPI: This 47-year-old female presents to the emergency room with complaints of dehydration feeling. She had a gastric sleeve in May 2016 and has had multiple admissions to an ER for dehydration requiring IV fluids. She is lost over 200 pounds and she is now stating that she has some difficulty in eating as well as drinking. She has not followed up with her gastric surgeon in over a year. She was recently seen here in August for UTI which was treated with Levaquin. She is now feeling that she feels dehydrated and run down. She is noncompliant with taking her vitamins and following up Chief Compliant: Dehydration Pain location: Denies Duration: Modifying factors: Quality: Radiating: Severity: Time: PMH: Gastric sleeve laparoscopically in May [address] Mello, at [facility]. Patient is also a history with anemia, GERD, anxiety, recent UTI FH: Pt has not recently traveled outside the country in the last 30 days. Pt has not been in contact with people who have traveled out of the country, in contact with people who have been ill with fever, n, v, d. SH: smoking use: + smoker illicit drug use: NONE alcohol use: NONE employment/educational status: sexual history: PSH: Gastric sleeve, cholecystectomy in 2004 Home med use noted on SEP Allergies: Doxycycline Immunizations: PCP: Dr. Diehl PRIVATE DUTY AIDE: LMP: 4 years G P : Past History - Past Medical History Allergies/Adverse Reactions: Allergies Allergy/AdvReac Type Severity Reaction Status Date / Time doxycycline Allergy Rash Verified 10/16/17 09:12 Home Medications: Ambulatory Orders Clonazepam 2 mg PO BID 03/13/14 Quetiapine Fumarate [Seroquel -] 50 mg PO BID 04/26/14 Lexapro - 20 mg PO DAILY 10/26/16 Phenazopyridine HCl [Pyridium] 200 mg PO TID #9 tablet 08/27/17 Phenazopyridine HCl [Pyridium] 200 mg PO TID PRN 3 Days #9 tablet MDD 3 levoFLOXacin [Levaquin -] 500 mg PO DAILY #7 tablet 08/27/17 Anemia: Yes Asthma: No Cancer: No Cardiac Disorders: No CVA: No COPD: No CHF: No Dementia: No Diabetes: No GI Disorders: Yes (GERD) Disorders: Yes (HEMATURIA) HTN: No Hypercholesterolemia: No Liver Disease: No Psychiatric Problems: Yes (ANXIETY/DEPRESSION) Seizures: No Thyroid Disease: No - Surgical History Abdominal Surgery: Yes Appendectomy: No Cardiac Surgery: No Cholecystectomy: Yes (2004) GI Surgery: Yes (GASTRIC SLEEVE-06/13) Lung Surgery: No Neurologic Surgery: No Orthopedic Surgery: No - Immunization History Immunization Up to Date: Yes - Suicide/Smoking/Psychosocial Hx Smoking Status: Yes Smoking History: Current some day smoker Have you smoked in the past 12 months: Yes Number of Cigarettes Smoked Daily: 2 If you are a former smoker, when did you quit?: 2002 Information on smoking cessation initiated: Yes 'Breaking Loose' booklet given: 10/16/17 Hx Alcohol Use: No Drug/Substance Use Hx: No Substance Use Type: None Hx Substance Use Treatment: No Review of Systems - Review of Systems Able to Perform ROS?: Yes Comments:: 10/16/17 11:46 General statement: Complaints of dehydration and feeling rundown Hematology: neg history of bleeding/blood thinners Skin: Neg for lesions, rash, bruising. HEENT: Neg symptoms Respiratory: Neg SOB or difficulty in breathing Cardiac: Neg chest pain GI: Neg pain, n/v but with poor appetite and poor oral intake : Neg problems on voiding MS: Neg for joint pain/stiffness, no edema Neuro: Neg for LOC, weakness, Endocrine: Neg for excess thirst/hunger, cold/heat intolerance, excess sweating Allergies: + for allergies *Physical Exam - Vital Signs Last Vital Signs Temp Pulse Resp BP Pulse Ox 98.7 F 86 19 124/71 100 10/16/17 09:12 10/16/17 09:12 10/16/17 09:12 10/16/17 09:12 10/16/17 09:12 - Physical Exam Comments: 10/16/17 11:46 General Appearance: This well appearing 47-year-old female V/S: hemodynamically stable, afebrile Skin: WNL of pt's skin color, no signs of pallor, mottling, cyanosis Head:symmetrical Eyes: EOM's intact, PERRLA Ears: denies pain Nose: patent Throat: lips, teeth, gums, tongue, buccal mucos pink and moist Lungs: Chest symmetry equal. Cap refill <3 seconds. Lung sounds clear Cardiac: PMI at R 4MCL space, pos S1 and S2, regular rate. Abdomen: Soft, round, nontender : Not observed Muscularskeletal: Gait steady, ambulated in to ER, no edema +PMS Neuro: AAOx3, cognitively intact, speech clear and appropriate. ED Treatment Course - LABORATORY CBC & Chemistry Diagram: 10/16/17 10:19 10/16/17 10:19 Medical Decision Making - Medical Decision Making 10/16/17 11:47 Patient initially seen and examined. Patient vital signs are stable hemodynamically stable. She feels dry however she does have some moist membranes. At this time I'll give her some IV fluids as she states she has not been having anything to drink in several days. She does have a history of a gastric sleeve. She has not followed up with her surgeon in over a year. I am also giving her vitamins as she does not take them at home. Labs are all within normal limits including electrolytes and do not need to have any kind of replacement. At this time she will be discharged and told to follow-up with her gastric bypass surgeon as well as resuming her vitamins. *DC/Admit/Observation/Transfer Diagnosis at time of Disposition: Dehydration - Discharge Dispostion Disposition: HOME Condition at time of disposition: Stable Admit: No - Referrals Referrals: Hardy Diehl MD [Primary Care Provider] - - Patient Instructions Printed Discharge Instructions: Dehydration Additional Instructions: Discharge instructions 1. Please follow up with your primary physician within the next few days and explain that you have been seen here in the Emergency Room. You must call Dr. Mello's office and schedule an appointment for follow-up. At that time you need to seek out the certified nutritionist to discuss vitamin supplementation office number is [phone] 2. If you experience any worsening of symptoms, please return to the ER 3. Continue to exercise daily 4. Drink plenty of water as well as resuming some protein shakes in order to get any of the nutrients in. - Post Discharge Activity Forms/Work/School Notes: Back to Work
[2017-10-16] MEDS ORDERED: THIAMINE HCL 100 MG TABLET (FP) PO ONE (09:36)
[2017-10-16] MEDS ORDERED: MULTIVITAMINS (DAILY MVI) TABLET (FP) PO ONE (09:36)
[2017-10-16] MEDS ORDERED: CYANOCOBALAMIN (VITAMIN B-12) 100 MCG TABLET PO ONE (09:38)
[2017-10-16] MEDS ORDERED: SODIUM CHLORIDE 1,000 ML IV STA ×2 (09:38→11:42)
[2017-10-16 10:59] LABS: BASO % 1.3 % (0-2.0); EOS % 1.2 % (0-4.5); HEMATOCRIT 40.8 % (32.4-45.2); HEMOGLOBIN 13.2 GM/dL (10.7-15.3); LYMPH % 32.3 % (8-40); MCH 25.8 pg (25.7-33.7); MCHC 32.4 g/dl (32.0-36.0); MEAN CELL VOLUME 79.7 fl (80-96); MEAN PLT VOLUME 7.7 fl (7.5-11.1); MONO % 5.9 % (3.8-10.2); NEUT % 59.3 % (42.8-82.8); PLATELET COUNT 309 K/MM3 (134-434); RBC 5.11 M/mm3 (3.60-5.2); RDW 13.7 % (11.6-15.6); WHITE BLOOD COUNT 6.1 K/mm3 (4.0-10.0)
[2017-10-16 11:04] LABS: URINE APPEARANCE CLEAR; URINE BILIRUBIN NEGATIVE (NEGATIVE); URINE BLOOD NEGATIVE (NEGATIVE); URINE COLOR YELLOW; URINE GLUCOSE (UA) NEGATIVE (NEGATIVE); URINE KETONE NEGATIVE (NEGATIVE); URINE LEUK ESTERASE NEGATIVE (NEGATIVE); URINE NITRITE NEGATIVE (NEGATIVE); URINE PROTEIN NEGATIVE (NEGATIVE)
[2017-10-16 11:24] LABS: ALBUMIN 3.4 g/dl (3.4-5.0); ANION GAP 8 (8-16); BLOOD UREA NITROGEN 12 mg/dL (7-18); CALCIUM 8.3 mg/dL (8.5-10.1); CHLORIDE 105 mmol/L (98-107); CO2 26 mmol/L (21-32); CREATININE 0.7 mg/dL (0.55-1.02); GLUCOSE,RANDOM 83 mg/dL (74-106); PHOSPHOROUS 2.8 mg/dL (2.5-4.9); SODIUM 139 mmol/L (136-145)
[2017-10-16 11:28] LABS: ALK PHOS 65 U/L (45-117); BILIRUBIN,TOTAL 0.7 mg/dL (0.2-1.0); SGPT/ALT 26 U/L (12-78); TOT PROT 6.9 g/dl (6.4-8.2)
[2017-10-16 11:33] LABS: MAGNESIUM 2.1 mg/dL (1.8-2.4); POTASSIUM 4.6 mmol/L (3.5-5.1); SGOT/AST 37 U/L (15-37)
[2017-10-16 13:21] VITALS: BP 106/62; PULSE 69
== END 2017-10-16 13:27 | disposition home or self-care (01) ==
LOC: JER 09:09
PROC: 3E0337Z Introduction of Electrolytic and Water Balance Substance into Peripheral Vein, Percutaneous Approach (ICD-10-PCS; principal; 2017-10-16)
DX: E86.0 Dehydration (principal); Z98.84 Bariatric surgery status; F17.210 Nicotine dependence, cigarettes, uncomplicated; F41.8 Other specified anxiety disorders; R31.9 Hematuria, unspecified; K21.9 Gastro-esophageal reflux disease without esophagitis
CPT/HCPCS: 36415; 80053; 81003; 83735; 84100; 85025; 96360; 96361; 99283-25; J7030

== ENCOUNTER 2017-11-11 09:01 | Emergency (ER) | payer OTHER ==
[2017-11-11 09:09] VITALS: BMI 25.0
--- NOTE | 2017-11-11 09:26 | PDOC ---
History of Present Illness - General Chief Complaint: Lightheaded Stated Complaint: EYE PROBLEM/SYNCOPE,INJ Time Seen by Provider: 11/11/17 09:18 - History of Present Illness Initial Comments: 11/11/17 10:08 47yo F with only medical history of gastric sleeve performed 2 years ago, hysterectomy, and cholecystectomy who presents with lightheadedness and injury to eye and orbit. Pt reports standing up this morning and feeling lightheaded and as a result fell. When she fell she hit the hard corner of her bed furniture on her L eye and orbit. Pt reports loss of consciousness for <1minute and regaining consciousness without any sensorium problems. Pt drove herself to the ER for further evaluation. Admittedly pt has not been drinking much water the past day. Pt denies any fever/chills, CP/discomfort, palpitations now and prior to fall. Pt denies being on any blood thinners or bleeding diseases. Pt denies any vision loss, changes with motor function, coordination, and sensation that she is aware of. PCP: Dr. Sana Diehl Past History - Past Medical History Allergies/Adverse Reactions: Allergies Allergy/AdvReac Type Severity Reaction Status Date / Time doxycycline Allergy Rash Verified 11/11/17 09:04 Home Medications: Ambulatory Orders Abilify 20 mg PO DAILY 11/11/17 Clonazepam 2 mg PO BID 11/11/17 Lexapro - 20 mg PO DAILY 11/11/17 Anemia: Yes Asthma: No Cancer: No Cardiac Disorders: No CVA: No COPD: No CHF: No Dementia: No Diabetes: No GI Disorders: Yes (GERD) Disorders: Yes (HEMATURIA) HTN: No Hypercholesterolemia: No Liver Disease: No Psychiatric Problems: Yes (ANXIETY/DEPRESSION) Seizures: No Thyroid Disease: No - Surgical History Abdominal Surgery: Yes Appendectomy: No Cardiac Surgery: No Cholecystectomy: Yes (2004) GI Surgery: Yes (GASTRIC SLEEVE-06/13) Lung Surgery: No Neurologic Surgery: No Orthopedic Surgery: No - Immunization History Immunization Up to Date: Yes - Suicide/Smoking/Psychosocial Hx Smoking Status: Yes Smoking History: Current some day smoker Have you smoked in the past 12 months: Yes Number of Cigarettes Smoked Daily: 2 If you are a former smoker, when did you quit?: 2002 Information on smoking cessation initiated: Yes 'Breaking Loose' booklet given: 11/11/17 Hx Alcohol Use: No Drug/Substance Use Hx: No Substance Use Type: None Hx Substance Use Treatment: No Review of Systems - Review of Systems Constitutional: No: Chills, Fever, Loss of Appetite, Night Sweats HEENTM: Yes: Eye Pain. No: Blurred Vision, Double Vision, Nose Congestion, Tinnitus, Throat Pain, Dental Problems Respiratory: No: Cough, Shortness of Breath Cardiac (ROS): Yes: Lightheadedness, Syncope. No: Chest Pain, Irregular Heart Rate, Palpitations, Chest Tightness ABD/GI: No: Abdominal Distended, Constipated, Diarrhea, Nausea, Vomiting, Abdominal cramping : No: Dysuria, Frequency, Flank Pain Musculoskeletal: No: Back Pain, Neck Pain Integumentary: Yes: Bruising Neurological: No: Headache, Numbness, Paresthesia, Tingling, Weakness, Ataxia, Dizziness Hematologic/Lymphatic: No: Easy Bleeding, Easy Bruising *Physical Exam - Vital Signs Last Vital Signs Temp Pulse Resp BP Pulse Ox 97.3 F L 95 H 18 127/82 100 11/11/17 09:05 11/11/17 09:05 11/11/17 09:05 11/11/17 09:05 11/11/17 09:05 - Physical Exam Comments: 11/11/17 10:15 GEN: NAD, awake, alert and oriented x3 HEENT: Ecchymotic areas on superior eye lid medially with edema extending laterally along supraorbital ridge (eye exam see MDM), EOMI, SE with accommodation intact, peripheral vision intact, no overt bleeding, no blood in iris or pupil seen. Skull structurally intact Neck: Structurally intact, no pain with palpation along spinous processes LUNGS: CTA b/l no wheezes, rales, rhonchi CARDIAC: RRR no murmurs appreciated S1 and S2 normal ABD: Soft, NT/ND, + BS, no rebound, no guarding EXT: No edema, 2+ DP pulses Heart Score/ECG Review #1 11/11/17 10:12 NSR @80bpm, normal axis, no R wave progression. No acute ST abnormalities. ME interval 124ms, QTc 428ms, No delta wave appreciated. ED Treatment Course - LABORATORY CBC & Chemistry Diagram: 11/11/17 09:50 11/11/17 09:50 Medical Decision Making - Medical Decision Making 11/11/17 09:46 given LOC and lightheadedness --EKG --Head CT noncontrast --Facial bone CT noncontrast Will perform eye exam with tetracaine and fluoroscein Highly suspicious for orthostatic pressures leading to her lightheadedness. 11/11/17 10:13 Eye exam performed --No Karlo's sign --No corneal abrasions appreciated --No linear streaks appreciated --L eye 20/25, R eye 20/30 EKG normal (see above) CBC without abnormalities CMP without metabolic derangements 11/11/17 11:[address] reports: No definite CT evidence of acute intracranial pathology. Mild focal hyperdensity is noted within the basal ganglia bilaterally, left more prominent than right, probably representing incidental unusual asymmetric calcification and less likely a very unusual small left basal ganglia acute bleed. Correlate with close follow-up CT. Facial Bone CT reports: An acute fracture is noted involving the medial wall of left orbit with medial fracture displacement of approximately 1.6 cm. There is associated prolapsed orbital fat through the fracture defect. The medial rectus muscle mildly bulges into the fracture defect Acute displaced fracture of the left nasal bone is seen. There is partial opacification of the left nasal cavity due to blood. A very small amount of blood is seen layering along the left posterior sphenoid sinus wall. Due to CT results will call [facility] for thought and possible transfer because of possible higher level of ophtho and trauma needs 11/11/17 11:57 [place] accepts transfer to Dr. Vieira --Patient consented and understands --Currently patient is stable *DC/Admit/Observation/Transfer Diagnosis at time of Disposition: Lightheadedness Eye injury, non-penetrating Qualifiers: Encounter type: initial encounter Laterality: left Qualified Code(s): S05.92XA - Unspecified injury of left eye and orbit, initial encounter Facial fracture Qualifiers: Encounter type: initial encounter Facial bone/location: other facial bone Fracture type: closed Laterality: left Qualified Code(s): S02.82XA - Fracture of other specified skull and facial bones, left side, initial encounter for closed fracture - Discharge Dispostion Disposition: TRANSFER ACUTE CARE/OTHER HOSP Condition at time of disposition: Stable - Referrals Referrals: Hardy Diehl MD [Primary Care Provider] - - Patient Instructions - Post Discharge Activity
[2017-11-11] MEDS ORDERED: FLUORESCEIN NA 1 EA STRIP OU ONE (09:44)
[2017-11-11] MEDS ORDERED: TETRACAINE 0.5% HCL 0.6ML DROPPER.BOTTLE OU ONE (09:44)
[2017-11-11] MEDS ORDERED: FLUORESCEIN NA 1 EA STRIP ONE (09:47)
[2017-11-11] MEDS ORDERED: TETRACAINE 0.5% OPHTH SOLN 2 ML BOTTLE ONE (09:47)
[2017-11-11 10:03] LABS: HEMATOCRIT 38.9 % (32.4-45.2); HEMOGLOBIN 12.7 GM/dL (10.7-15.3); MCH 26.2 pg (25.7-33.7); MCHC 32.6 g/dl (32.0-36.0); MEAN CELL VOLUME 80.4 fl (80-96); MEAN PLT VOLUME 7.4 fl (7.5-11.1); PLATELET COUNT 281 K/MM3 (134-434); RBC 4.84 M/mm3 (3.60-5.2); RDW 14.6 % (11.6-15.6); WHITE BLOOD COUNT 8.7 K/mm3 (4.0-10.0)
[2017-11-11] MEDS ORDERED: ACETAMINOPHEN 325 MG TABLET (FP) PO ONE (10:04)
[2017-11-11] MEDS ORDERED: ACETAMINOPHEN 325 MG TABLET (FP) ONE (10:09)
--- NOTE | 2017-11-11 10:22 | PDOC ---
Attending Attestation - Resident Resident Name: Joey Bartlett - ED Attending Attestation I have performed the following: I have examined & evaluated the patient, The case was reviewed & discussed with the resident, I agree w/resident's findings & plan, Exceptions are as noted - HPI HPI: 11/11/17 10:17 47 year old female c/ hx of hysterectomy, cholecystectomy, gastric surgery p/w near syncope. The patient was waking up from bed and stood up too quickly. Became lightheaded and struck the left side of her head and around left eye. Developed left "black eye" Denies chest pain or shortness of breath or palpitations. Now has developed left sided headache. Denies any changes in visual acuity. Does not wear contact lenses or glasses. Denies any numbness, weakness, tingling. Does not take any anticoagulants. - Physicial Exam PE: 11/11/17 10:25 GENERAL: Awake, alert, and fully oriented, in no acute distress. HEAD: No gallagher sign. Small left sided raccoon eye. No jaw tenderness. No loose teeth. EYES: PERRLA, EOMI, sclera anicteric, mildly injected left eye. OD: 20/25 OS: 20/30; no lloyd sign or signs of corneal abrasion on fluorescein strips. ENT: Auricles normal inspection, hearing grossly normal, nares patent. No c- spine tenderness. NECK: Normal ROM, supple, no lymphadenopathy, JVD, or masses LUNGS: Breath sounds equal, clear to auscultation bilaterally. No wheezes, and no crackles HEART: Regular rate and rhythm, normal S1 and S2, no murmurs, rubs or gallops ABDOMEN: Soft, nontender. No guarding, no rebound. No masses EXTREMITIES: Normal range of motion, no edema. No clubbing or cyanosis. No cords, erythema, or tenderness NEUROLOGICAL: Cranial nerves II through XII intact. Normal speechl. Sensation and strength intact in all extremities. SKIN: Warm, Dry, normal turgor, no rashes or lesions noted. - Medical Decision Making 11/11/17 10:28 Vital Signs Temp Pulse Resp BP Pulse Ox 97.3 F L 95 H 18 127/82 100 11/11/17 09:05 11/11/17 09:05 11/11/17 09:05 11/11/17 09:05 11/11/17 09:05 I suspect that the patient has had vasovagal/orthostatic near syncope. ECG is reassuring. The patient has a left sided headache s/p injury. Eye exam demonstrates a reassuring visual acuity and no evidence of corneal abrasion or globe rupture. Will obtain a head CT and facial CT for injuries. Labs. pt is also s/p hysterectomy ( no need for urine preg test). If workup is negative, and patient reports feeling better, can be d/c home. <Luciano Tesfaye - Last Filed: 11/11/17 10:17> - Medical Decision Making Contacted [facility], Dr. Hemphill at 11:29. <Erika Nava - Last Filed: 11/11/17 11:30> Heart Score/ECG Review #1 ECG reviewed & interpreted by me at: 09:45 11/11/17 10:22 NSR 79, no std/elton, T wave flat III, normal axis, normal intervals, QTC 428 msec. no brugada, no HOCM, no WPW <Luciano Tesfaye - Last Filed: 11/11/17 10:17>
[2017-11-11 10:36] LABS: ALBUMIN 3.3 g/dl (3.4-5.0); ALK PHOS 63 U/L (45-117); ANION GAP 3 (8-16); BLOOD UREA NITROGEN 14 mg/dL (7-18); CALCIUM 8.1 mg/dL (8.5-10.1); CHLORIDE 108 mmol/L (98-107); CO2 30 mmol/L (21-32); CREATININE 0.7 mg/dL (0.55-1.02); GLUCOSE,RANDOM 103 mg/dL (74-106); POTASSIUM 4.2 mmol/L (3.5-5.1); SGOT/AST 30 U/L (15-37); SGPT/ALT 24 U/L (12-78); SODIUM 141 mmol/L (136-145); TOT PROT 6.8 g/dl (6.4-8.2)
[2017-11-11 10:38] LABS: BILIRUBIN,TOTAL < 0.1 mg/dL (0.2-1.0)
--- NOTE | 2017-11-11 11:43 | PDOC ---
*Physical Exam - Vital Signs Last Vital Signs Temp Pulse Resp BP Pulse Ox 97.3 F L 95 H 18 127/82 100 11/11/17 09:05 11/11/17 09:05 11/11/17 09:05 11/11/17 09:05 11/11/17 09:05 ED Treatment Course - LABORATORY CBC & Chemistry Diagram: 11/11/17 09:50 11/11/17 09:50 - ADDITIONAL ORDERS Additional order review: Laboratory Results 11/11/17 09:50 Sodium 141 Potassium 4.2 Chloride 108 H Carbon Dioxide 30 Anion Gap 3 L BUN 14 Creatinine 0.7 Creat Clearance w eGFR > 60 Random Glucose 103 Calcium 8.1 L Total Bilirubin < 0.1 L D AST 30 ALT 24 Alkaline Phosphatase 63 Total Protein 6.8 Albumin 3.3 L 11/11/17 09:50 RBC 4.84 MCV 80.4 MCHC 32.6 RDW 14.6 MPV 7.4 L - Medications Given in the ED: ED Medications Discontinued Medications Generic Name Dose Route Start Last Admin Trade Name Deanna PRN Reason Stop Dose Admin Acetaminophen 650 mg 11/11/17 10:04 11/11/17 10:08 Tylenol - PO 11/11/17 10:05 650 mg ONCE ONE Administration Fluorescein Sodium 2 ea 11/11/17 09:44 11/11/17 09:48 Fluorets - OU 11/11/17 09:45 2 ea ONCE ONE Administration Tetracaine HCl 1 drop 11/11/17 09:44 11/11/17 09:49 Tetravisc 0.5% Eye Drops - OU 11/11/17 09:45 1 drop ONCE ONE Administration Medical Decision Making - Medical Decision Making 11/11/17 11:39 CBC, BMP 11/11/17 09:50 11/11/17 09:50 CMP Sodium 141 mmol/L (136-145) 11/11/17 09:50 Potassium 4.2 mmol/L (3.5-5.1) 11/11/17 09:50 Chloride 108 mmol/L (98-107) H 11/11/17 09:50 Carbon Dioxide 30 mmol/L (21-32) 11/11/17 09:50 Anion Gap 3 (8-16) L 11/11/17 09:50 BUN 14 mg/dL (7-18) 11/11/17 09:50 Creatinine 0.7 mg/dL (0.55-1.02) 11/11/17 09:50 Creat Clearance w eGFR > 60 (>60) 11/11/17 09:50 Random Glucose 103 mg/dL (74-106) 11/11/17 09:50 Calcium 8.1 mg/dL (8.5-10.1) L 11/11/17 09:50 Total Bilirubin < 0.1 mg/dL (0.2-1.0) L D 11/11/17 09:50 AST 30 U/L (15-37) 11/11/17 09:50 ALT 24 U/L (12-78) 11/11/17 09:50 Alkaline Phosphatase 63 U/L (45-117) 11/11/17 09:50 Total Protein 6.8 g/dl (6.4-8.2) 11/11/17 09:50 Albumin 3.3 g/dl (3.4-5.0) L 11/11/17 09:[address] shows ?questionable head bleed? (though probably not likely). Facial fracture with nasal fracture and medial orbital wall fx c/ entrapment of medial rectus. Case discussed with Dr. Germania Vieira (trauma surgeon) at [facility] who accepts patient for transfer to adult ER. Pt consents for transfer. *DC/Admit/Observation/Transfer Diagnosis at time of Disposition: Lightheadedness Eye injury, non-penetrating Qualifiers: Encounter type: initial encounter Laterality: left Qualified Code(s): S05.92XA - Unspecified injury of left eye and orbit, initial encounter Facial fracture Qualifiers: Encounter type: initial encounter Facial bone/location: unspecified facial bone Fracture type: closed Qualified Code(s): S02.92XA - Unspecified fracture of facial bones, initial encounter for closed fracture - Discharge Dispostion Disposition: TRANSFER ACUTE CARE/OTHER HOSP Condition at time of disposition: Stable - Referrals Referrals: Hardy Diehl MD [Primary Care Provider] - - Patient Instructions - Post Discharge Activity - Transfer to Acute Care Facility Receiving Facility: [facility]. Accepting Physician:: Dr. Germania Vieira
[2017-11-11 11:50] VITALS: TEMP 97.9
[2017-11-11 13:16] VITALS: BP 125/70; PULSE 70
--- NOTE | 2017-11-11 14:17 | EKG ---
Test Reason : Blood Pressure : / mmHG Vent. Rate : 079 BPM Atrial Rate : 079 BPM P-R Int : 124 ms QRS Dur : 076 ms QT Int : 374 ms P-R-T Axes : 076 038 040 degrees QTc Int : 428 ms NORMAL SINUS RHYTHM NORMAL ECG WHEN COMPARED WITH ECG OF 26-OCT-2016 17:34, NONSPECIFIC T WAVE ABNORMALITY NO LONGER EVIDENT IN ANTERIOR LEADS Confirmed by HOWIE JEFFERSON MD ([id number]) on 11/11/2017 2:17:20 PM Referred By: Confirmed By:HOWIE JEFFERSON MD
== END 2017-11-11 13:29 | disposition short-term general hospital (02) ==
LOC: JER 09:01
PROC: 4A07X0Z Measurement of Visual Acuity, External Approach (ICD-10-PCS; principal; 2017-11-11)
DX: S02.82XA Fracture of other specified skull and facial bones, left side, initial encounter for closed fracture (principal); S05.92XA Unspecified injury of left eye and orbit, initial encounter; S02.2XXA Fracture of nasal bones, initial encounter for closed fracture; W01.190A Fall on same level from slipping, tripping and stumbling with subsequent striking against furniture, initial encounter; Y93.89 Activity, other specified; Y92.032 Bedroom in apartment as the place of occurrence of the external cause; Y99.8 Other external cause status; F41.8 Other specified anxiety disorders; F32.9 Major depressive disorder, single episode, unspecified; Z86.2 Personal history of diseases of the blood and blood-forming organs and certain disorders involving the immune mechanism; Z87.19 Personal history of other diseases of the digestive system; Z98.84 Bariatric surgery status; F17.210 Nicotine dependence, cigarettes, uncomplicated
CPT/HCPCS: 36415; 70450-TC; 70486-TC; 80053; 82550; 84484; 85027; 93005; 93010; 99173; 99285-25

== ENCOUNTER 2018-03-21 13:35 | Emergency (ER) | payer OTHER ==
[2018-03-21 14:29] VITALS: BP 102/67; PULSE 78; TEMP 98.4; BMI 25.0
--- NOTE | 2018-03-21 14:52 | PDOC ---
Attending Attestation - HPI HPI: 03/21/18 17:07 The patient is a 47 year old female with a significant PMH of a gastric sleeve , hysterectomy, cholecystectomy, anemia, GERD, and anxiety who presents to the emergency department with weakness secondary to meningitis exposure. The patient reports that she was recently exposed to her daughter who was recently diagnosed with meningitis . the patient reports that she has been experiencing some associated chills, aches and pain with coughing. She also reports some associated headache. The patient also reports some instances of blurred vision for about 2 months. She denies any other symptoms. She denies any fever nausea, vomit, diarrhea, constipation or urinary symptoms. She denies any chest pain, shortness of breath,and dizziness. The patient denies any other complaints. PCP: Dr. Diehl - Physicial Exam PE: 03/21/18 17:08 GENERAL: Awake, alert, and fully oriented, in no acute distress. No meningeal signs. HEAD: No signs of trauma EYES: PERRLA, EOMI, sclera anicteric, conjunctiva clear ENT: Auricles normal inspection, hearing grossly normal, nares patent, oropharynx clear without exudates. Moist mucosa. No tenderness in neck. NECK: Normal ROM, supple, no lymphadenopathy, JVD, or masses LUNGS: Breath sounds equal, clear to auscultation bilaterally. No wheezes, and no crackles HEART: Regular rate and rhythm, normal S1 and S2, no murmurs, rubs or gallops ABDOMEN: Soft, nontender, normoactive bowel sounds. No guarding, no rebound. No masses EXTREMITIES: Normal range of motion, no edema. No clubbing or cyanosis. No cords, erythema, or tenderness NEUROLOGICAL: Cranial nerves II through XII grossly intact. Normal speech, normal gait SKIN: Warm, Dry, normal turgor, no rashes or lesions noted Documentation prepared by Joanna Santos, acting as chief medical director for Meron Loja MD. <Joanna Santos - Last Filed: 03/21/18 17:07> - Resident Resident Name: Stephen Acosta - ED Attending Attestation I have performed the following: I have examined & evaluated the patient, The case was reviewed & discussed with the resident, I agree w/resident's findings & plan, Exceptions are as noted - Physicial Exam PE: 03/22/18 08:02 neck was supple, no meningeal signs, neg kernigs and brudzinsky - Medical Decision Making 03/21/18 14:52 I, Dr. Meron Loja, DO, attest that this document has been prepared under my direction and personally reviewed by me in its entirety. I further attest, that it accurately reflects all work, treatment, procedures and medical decision -making performed by me. 03/21/18 16:23 a/p: 47yo female with dizziness and chills -no meningeal signs -daughter with aseptic viral meningitis -no cr -neck is supple -no meningeal signs -FROM of cervical spine without pain -no cp/sob -no abd pain -no rashes -discussed head ct, lp, meningitis workup to eval of exposure to viral meningitis -source patient with negative gram stain -after having a full discussion with the patient of risks/benefits of LP - pt states she does not have a cr or fever, does not want an LP. -discussed close monitoring and all reasons to return to the ED -discussed follow up with her PMd -answered all questions -pt is nontoxic in appearance and low risk for bacterial meningitis -source patient most likely with aseptic viral meningitis <Meron Loja - Last Filed: 03/22/18 08:02>
[2018-03-21] MEDS ORDERED: ACETAMINOPHEN 500 MG TABLET (FP) PO ONE (15:17)
[2018-03-21] MEDS ORDERED: ACETAMINOPHEN 325 MG TABLET (FP) ONE (15:44)
[2018-03-21 15:45] LABS: BASO % 1.3 % (0-2.0); EOS % 2.5 % (0-4.5); HEMATOCRIT 37.5 % (32.4-45.2); HEMOGLOBIN 12.6 GM/dL (10.7-15.3); LYMPH % 39.3 % (8-40); MCH 27.1 pg (25.7-33.7); MCHC 33.5 g/dl (32.0-36.0); MEAN CELL VOLUME 80.8 fl (80-96); MEAN PLT VOLUME 7.9 fl (7.5-11.1); NEUT % 52.9 % (42.8-82.8); PLATELET COUNT 247 K/MM3 (134-434); RBC 4.64 M/mm3 (3.60-5.2); RDW 13.8 % (11.6-15.6); WHITE BLOOD COUNT 6.7 K/mm3 (4.0-10.0)
[2018-03-21 15:59] LABS: ANION GAP 8 MMOL/L (8-16); BLOOD UREA NITROGEN 18 mg/dL (7-18); CALCIUM 8.8 mg/dL (8.5-10.1); CHLORIDE 106 mmol/L (98-107); CO2 29 mmol/L (21-32); CREATININE 0.8 mg/dL (0.55-1.02); GLUCOSE,RANDOM 75 mg/dL (74-106); POTASSIUM 4.1 mmol/L (3.5-5.1); SODIUM 143 mmol/L (136-145)
--- NOTE | 2018-03-21 16:40 | PDOC ---
History of Present Illness - General Chief Complaint: Weakness Stated Complaint: MENINGITIS Time Seen by Provider: 03/21/18 14:37 History Source: Patient Exam Limitations: No Limitations - History of Present Illness Initial Comments: 47 y/o female presenting to [facility] ER via private auto complaining of neck/back pain for the past 5 days. Pain is localized to mid thoracic. Also complaining of nausea with reflux of food matter into her mouth. Reports this is a chronic problem since her gastric sleeve. Is mostly concerned that she may have meningitis as her daughter was admitted to this facility yesterday with meningitis (presumed viral, gram stain is negative, cultures NGTD). Pt endorses chills but no diaphoresis, fevers, headaches, or neck stiffness. Past History - Past Medical History Allergies/Adverse Reactions: Allergies Allergy/AdvReac Type Severity Reaction Status Date / Time doxycycline Allergy Rash Verified 03/21/18 14:25 Home Medications: Ambulatory Orders Abilify 20 mg PO DAILY 11/11/17 Clonazepam 2 mg PO BID 11/11/17 Lexapro - 20 mg PO DAILY 11/11/17 Anemia: Yes Asthma: No Cancer: No Cardiac Disorders: No CVA: No COPD: No CHF: No Dementia: No Diabetes: No GI Disorders: Yes (GERD) Disorders: Yes (HEMATURIA) HTN: No Hypercholesterolemia: No Liver Disease: No Psychiatric Problems: Yes (ANXIETY/DEPRESSION) Seizures: No Thyroid Disease: No - Surgical History Abdominal Surgery: Yes Appendectomy: No Cardiac Surgery: No Cholecystectomy: Yes (2004) GI Surgery: Yes (GASTRIC SLEEVE-06/13) Lung Surgery: No Neurologic Surgery: No Orthopedic Surgery: No - Immunization History Immunization Up to Date: Yes - Suicide/Smoking/Psychosocial Hx Smoking Status: Yes Smoking History: Current some day smoker Have you smoked in the past 12 months: Yes Number of Cigarettes Smoked Daily: 2 If you are a former smoker, when did you quit?: 2002 Information on smoking cessation initiated: No 'Breaking Loose' booklet given: 11/11/17 Hx Alcohol Use: No Drug/Substance Use Hx: No Substance Use Type: None Hx Substance Use Treatment: No Review of Systems - Review of Systems Constitutional: Yes: Chills. No: Diaphoresis, Fever, Malaise, Weakness HEENTM: Yes: Double Vision (Occurs while turning head; Chronic and unchanged.). No: Recent change in vision, Difficulty Swallowing Respiratory: Yes: Cough. No: Shortness of Breath Cardiac (ROS): No: Chest Pain, Syncope ABD/GI: No: Rectal Bleeding, Abdominal cramping : No: Burning, Dysuria, Discharge, Hematuria Musculoskeletal: Yes: Back Pain. No: Muscle Weakness Integumentary: No: Bruising, Lesions, Rash Neurological: No: Headache, Numbness, Paresthesia, Weakness Hematologic/Lymphatic: No: Easy Bleeding, Easy Bruising *Physical Exam - Vital Signs Last Vital Signs Temp Pulse Resp BP Pulse Ox 98.4 F 78 19 102/67 100 03/21/18 14:25 03/21/18 14:25 03/21/18 14:03/21/18 14:03/21/18 14:25 - Physical Exam Comments: Constitutional: Well-developed, well-nourished, non-toxic female in no acute life threat or obvious discomfort. Found sitting upright on edge of hospital bed. Alert and oriented x4. Answered all questions appropriately and completely. Speech was non-labored, non-pressured. Head: Normocephalic. No obvious external signs of trauma. Eyes: PERRL. Sclerae white. Conjunctiva moist and not injected. EARS: Hearing grossly intact. NOSE: No nasal discharge. THROAT: Oral cavity and pharynx normal. No inflammation, swelling, exudate, or lesions. Teeth and gingiva in good general condition. Neck: Supple, trachea is midline. No nuchal rigidity. No Kernig's or Brudzinski' s. No decreased active or passive neck rotation or flexion and extension. Cardiovascular: Regular rate and regular rhythm. No murmur, rubs, clicks, or gallops. Peripheral pulses: Radial pulses full. Respiratory: Equal chest rise and fall. Clear to auscultation bilaterally. No stridor, no wheezing, no rhonchi. No cough witnessed during interview. Gastrointestinal: abdomen is soft, non-tender, non-distended.No overlying skin lesions or obvious signs of trauma. Neuro: Alert and oriented. Moving all four extremities spontaneously. Ambulating around hospital room without assistance; gait normal. Psych: Affect: appropriate. Mood: normal. Skin: Warm, dry, and intact. No bruising, rashes, or other lesions. : No R or L CVA tenderness. ED Treatment Course - LABORATORY CBC & Chemistry Diagram: 03/21/18 15:35 03/21/18 15:35 - ADDITIONAL ORDERS Additional order review: Laboratory Results 03/21/18 15:35 Sodium 143 Potassium 4.1 Chloride 106 Carbon Dioxide 29 Anion Gap 8 BUN 18 Creatinine 0.8 Creat Clearance w eGFR > 60 Random Glucose 75 Calcium 8.8 03/21/18 15:35 RBC 4.64 MCV 80.8 MCHC 33.5 RDW 13.8 MPV 7.9 Neutrophils % 52.9 Lymphocytes % 39.3 D Monocytes % 4.0 Eosinophils % 2.5 D Basophils % 1.3 - Medications Given in the ED: ED Medications Discontinued Medications Generic Name Dose Route Start Last Admin Trade Name Freq PRN Reason Stop Dose Admin Acetaminophen 1,000 mg 03/21/18 15:17 03/21/18 15:57 Tylenol - PO 03/21/18 15:18 1,000 mg ONCE ONE Administration Medical Decision Making - Medical Decision Making *Reviewed nursing notes and prior visit documentation. 47 y/o female concerned for meningitis given daughters recent diagnosis. Does not endorse any warning signs. Afebrile. Vitals unremarkable for hypotension or tachycardia. Low suspicion for acute illness. Physical exam is very reassuring. Will obtain CBC, BMP. Pt declined IV insertion as she didnt feel she was that sick. Ordered PO tylenol for back pain. Discussed risks and benefits of lumbar puncture, noted this was the only way to test directly for meningitis but that clinically the pt does not have signs/ symptoms. Pt declined to have procedure performed. CBC and BMP unremarkable for derangement. Pt reports back pain has improved after tylenol. Discussed normal laboratory results with pt. She expressed verbal understanding and agreement with plan to discharge home with outpatient follow up with PCP within the next week. No prescriptions dispensed. Pt discharged from department without further incident. *DC/Admit/Observation/Transfer Diagnosis at time of Disposition: Neck pain - Discharge Dispostion Disposition: HOME Condition at time of disposition: Good Decision to Admit order: No - Referrals Referrals: Paddy Solimna [Non Staff, Medical] - - Patient Instructions Printed Discharge Instructions: DI for Low Back Pain Additional Instructions: Your blood work was normal. Your neck pain is not likely to be because of meningitis. Please follow up with your primary care doctor, Dr. Soliman, within the next week. You will need to call his office to make an appointment. The number is . I attached a copy of your lab work to this packet. Please take this to your doctor's appointment. Come back to the emergency room if you get a fever, really bad headache, neck pain that makes a headache worse, neck stiffness, or a rash. You can also come back if you feel like your condition requires additional emergency evaluation. - Post Discharge Activity
== END 2018-03-21 16:45 | disposition home or self-care (01) ==
LOC: JER 13:35
DX: M54.2 Cervicalgia (principal); Z98.84 Bariatric surgery status; F41.8 Other specified anxiety disorders; R31.9 Hematuria, unspecified; F17.210 Nicotine dependence, cigarettes, uncomplicated
CPT/HCPCS: 36415; 80048; 85025; 99282-25

== ENCOUNTER 2019-01-05 01:45 | Emergency (ER) | payer OTHER ==
[2019-01-05 02:06] VITALS: BMI 26.6
--- NOTE | 2019-01-05 02:17 | PDOC ---
History of Present Illness - General Chief Complaint: HIV Testing Stated Complaint: BACK/ABD PAIN Time Seen by Provider: 01/05/19 02:17 - History of Present Illness Initial Comments: 48 year old female with PMH of anxiety and depression presenting with vaginal discharge and abdominal pain for the past few days. Patient states that she has tested positive for HPV a few weeks ago at her OBGYN and believes she received it from her fiance (soon to be ex-fiance). She also states that she has had repeated episodes of vaginal discharge a few days after continuous intercourse with her fiance despite resolution with topical/ intra-vaginal treatments prior. She suspects that she is being reinfected with trichomonas/ BV by her partner. She does admit to some lower central and left pelvic pain as well with some diarrhea for the past two days. Of note she is very anxious and would tear up frequently during my interview. Denies fevers, chills, nausea, vomiting, or other symptoms. 01/05/19 02:56 Past History - Past Medical History Allergies/Adverse Reactions: Allergies Allergy/AdvReac Type Severity Reaction Status Date / Time doxycycline Allergy Rash Verified 01/05/19 02:02 Home Medications: Ambulatory Orders Abilify 20 mg PO DAILY 11/11/17 Clonazepam 2 mg PO BID 11/11/17 Lexapro - 20 mg PO DAILY 11/11/17 Anemia: Yes Asthma: No Cancer: No Cardiac Disorders: No CVA: No COPD: No CHF: No Dementia: No Diabetes: No GI Disorders: Yes (GERD) Disorders: Yes (HEMATURIA) HTN: No Hypercholesterolemia: No Liver Disease: No Psychiatric Problems: Yes (ANXIETY/DEPRESSION) Seizures: No Thyroid Disease: No - Surgical History Abdominal Surgery: Yes Appendectomy: No Cardiac Surgery: No Cholecystectomy: Yes (2004) GI Surgery: Yes (GASTRIC SLEEVE-06/13) Lung Surgery: No Neurologic Surgery: No Orthopedic Surgery: No - Immunization History Immunization Up to Date: Yes - Suicide/Smoking/Psychosocial Hx Smoking Status: Yes Smoking History: Never smoked Have you smoked in the past 12 months: Yes Number of Cigarettes Smoked Daily: 2 If you are a former smoker, when did you quit?: 2002 'Breaking Loose' booklet given: 11/11/17 Hx Alcohol Use: No Drug/Substance Use Hx: No Substance Use Type: None Hx Substance Use Treatment: No Review of Systems - Review of Systems Constitutional: No: Chills, Diaphoresis, Fever, Loss of Appetite HEENTM: No: Blurred Vision, Tearing Respiratory: No: Cough, Orthopnea, Shortness of Breath Cardiac (ROS): No: Chest Pain, Edema, Irregular Heart Rate ABD/GI: Yes: Diarrhea. No: Nausea, Vomiting : Yes: Discharge, Pain. No: Burning, Dysuria Integumentary: No: Bruising, Lesions, Lumps Neurological: No: Headache, Numbness, Paresthesia Psychiatric: Yes: Anxiety, Depression Hematologic/Lymphatic: No: Anemia, Blood Clots, Easy Bleeding *Physical Exam - Vital Signs Last Vital Signs Temp Pulse Resp BP Pulse Ox 98.2 F 100 H 18 109/72 100 01/05/19 02:01 01/05/19 02:01 01/05/19 02:01 01/05/19 02:01 01/05/19 02:01 - Physical Exam General Appearance: Yes: Nourished, Appropriately Dressed, Apparent Distress ( emotional distress), Mild Distress HEENT: positive: EOMI, CHRIS, Normal ENT Inspection Neck: positive: Trachea midline, Normal Thyroid, Supple. negative: Tender, Rigid Respiratory/Chest: positive: Lungs Clear, Normal Breath Sounds. negative: Chest Tender, Respiratory Distress, Accessory Muscle Use Cardiovascular: positive: Regular Rhythm, Tachycardia. negative: Regular Rate Female Pelvic Exam: positive: normal external exam, cervical os closed, discharge (copious white and clear discharge in posterior vaginal vault without malodorous or purulent quality. White portions were clumped.). negative: normal adnexa (left sided adnexal tenderness), CMT Gastrointestinal/Abdominal: positive: Normal Bowel Sounds, Tender (suprapubic tenderness), Flat, Soft Lymphatic: negative: Adenopathy, Tenderness Musculoskeletal: positive: Normal Inspection. negative: Decreased Range of Motion Extremity: positive: Normal Capillary Refill, Normal Inspection, Normal Range of Motion. negative: Tender Integumentary: positive: Normal Color, Dry, Warm Neurologic: positive: Fully Oriented, Alert, Normal Response, Motor Strength 5/ 5. negative: Normal Mood/Affect (anxious and tearful) Medical Decision Making - Medical Decision Making 48 year old here with vaginal discharge and pelvic pain and requesting STI/ STD testing. HIV negative and GC and other STI testing pending. UA negative. Although patient had adnexal tenderness, she states that this is similar to her ovarian cyst pain that she is being followed for by her OBGYN and is declining our US despite the potential risks. Unlikely to be PID given patient is not equisitely tender and has no VS abnormalities. She was given 1 G azithro and ceftriaxone 250 MG and is still taking her Flagyl intravaginal cream. Will do call back for other labs. 01/05/19 04:25 *DC/Admit/Observation/Transfer Diagnosis at time of Disposition: Cervicitis - Discharge Dispostion Disposition: HOME Condition at time of disposition: Improved Decision to Admit order: No - Referrals Referrals: Paddy Soliman [Primary Care Provider] - - Patient Instructions Printed Discharge Instructions: DI for Acute Cervicitis Additional Instructions: Please use your cream as directed. We will call you back with the results of the other tests. Please follow up with your OBGYN as soon as you can to have these symptoms reexamined. Please return to the ED if you have new or worsening symptoms. - Post Discharge Activity
--- NOTE | 2019-01-05 03:07 | PDOC ---
Attending Attestation - Resident Resident Name: Tomasz Apple - ED Attending Attestation I have performed the following: I have examined & evaluated the patient, The case was reviewed & discussed with the resident, I agree w/resident's findings & plan - HPI HPI: 01/05/19 03:06 Pt comes for STD check, as she keeps getting STDs from her fiancee. - Physicial Exam PE: 01/05/19 03:06 Agree with resident exam - Medical Decision Making 01/05/19 03:07 STD testing sent. Ovary/pelvic sono in the AM. HIV neg. Pt was treated with ceftriaxone/zithromax. Home with [employer] follow up.
[2019-01-05] MEDS ORDERED: AZITHROMYCIN 500 MG TABLET PO ONE (03:08)
[2019-01-05 03:30] LABS: EPI CELLS 1.4 /HPF (0-5/HPF); HYALINE CASTS 3 /lpf (0-8); URINE APPEARANCE CLOUDY; URINE BACTERIA 1.7 /hpf (NEGATIVE); URINE BILIRUBIN NEGATIVE (NEGATIVE); URINE COLOR YELLOW; URINE GLUCOSE (UA) NEGATIVE (NEGATIVE); URINE KETONE NEGATIVE (NEGATIVE); URINE LEUK ESTERASE NEGATIVE (NEGATIVE); URINE NITRITE NEGATIVE (NEGATIVE); URINE PROTEIN NEGATIVE (NEGATIVE); URINE RBC 3 /hpf (0-4); URINE UROBILINOGEN 0.2 mg/dL (0.2-1.0); URINE WBC 1 /hpf (0-5)
[2019-01-05] MEDS ORDERED: LIDOCAINE HCL 1%, 10 MG/ML (20ML VIAL) ONE (04:24)
[2019-01-05] MEDS ORDERED: KETOROLAC TROMETHAMINE 30 MG/1 ML VIAL IM ONE (04:47)
[2019-01-05] MEDS ORDERED: MAG HYDROX/AL HYDROX/SIMETH 30 ML UNIT-DOSE CUP PO ONE (04:47)
[2019-01-05] MEDS ORDERED: MAG HYDROX/AL HYDROX/SIMETH 30 ML UNIT-DOSE CUP ONE (04:51)
[2019-01-05] MEDS ORDERED: KETOROLAC TROMETHAMINE 30 MG/1 ML VIAL ONE (04:51)
[2019-01-05 05:00] VITALS: BP 110/82; PULSE 94; TEMP 98.6
== END 2019-01-05 05:24 | disposition home or self-care (01) ==
LOC: JER 01:45
PROC: 3E02329 Introduction of Other Anti-infective into Muscle, Percutaneous Approach (ICD-10-PCS; principal; 2019-01-05)
PROC: 3E0233Z Introduction of Anti-inflammatory into Muscle, Percutaneous Approach (ICD-10-PCS; 2019-01-05)
DX: N72 Inflammatory disease of cervix uteri (principal)
CPT/HCPCS: 36415; 81003; 87086; 87389; 87491; 87529; 87591; 96372; 99282-25

== ENCOUNTER 2019-09-24 16:50 | Emergency (ER) | payer BC, OTHER ==
--- NOTE | 2019-09-24 17:02 | PDOC ---
History of Present Illness - General Stated Complaint: HEADACHE AND DIZZINES - History of Present Illness Initial Comments: The pt is a 49F w/ a history of depression, s/p gastric sleeve/paula/parital hys who presents for evaluation of 2 days of suprapubic/LLQ abdominal pain. The pain is intermittent, achy, worsened by touch, and not alleviated by anything she can identify. She endorses associated urinary frequency. She reports a history of constipation but had 1 episode of loose stool today. She denies fevers, vomiting, chest pain, trouble breathing, dysuria, or rash. Additionally she reports 2 weeks of dizziness/CONTRERAS that are both intermittent. She currently does not have a CONTRERAS or feel dizzy. She has a prescription for a head CT from Dr. Brown PMD: Dr. Guaman PMH: Anemia, GERD, depression PSH: Paula (2004), Gastric Sleeve, partial hysterectomy 09/24/19 17:40 Past History - Past Medical History Allergies/Adverse Reactions: Allergies Allergy/AdvReac Type Severity Reaction Status Date / Time doxycycline Allergy Rash Verified 09/24/19 17:35 Home Medications: Ambulatory Orders Abilify 20 mg PO DAILY 11/11/17 Clonazepam 2 mg PO BID 11/11/17 Lexapro - 20 mg PO DAILY 11/11/17 Anemia: Yes Asthma: No Cancer: No Cardiac Disorders: No CVA: No COPD: No CHF: No Dementia: No Diabetes: No GI Disorders: Yes (GERD) Disorders: Yes (HEMATURIA) HTN: No Hypercholesterolemia: No Liver Disease: No Psychiatric Problems: Yes (ANXIETY/DEPRESSION) Seizures: No Thyroid Disease: No - Surgical History Abdominal Surgery: Yes Appendectomy: No Cardiac Surgery: No Cholecystectomy: Yes (2004) GI Surgery: Yes (GASTRIC SLEEVE-06/13) Lung Surgery: No Neurologic Surgery: No Orthopedic Surgery: No - Immunization History Immunization Up to Date: Yes - Psycho Social/Smoking Cessation Hx Smoking Status: Yes Smoking History: Never smoked Have you smoked in the past 12 months: Yes Number of Cigarettes Smoked Daily: 2 If you are a former smoker, when did you quit?: 2002 'Breaking Loose' booklet given: 11/11/17 Hx Alcohol Use: No Drug/Substance Use Hx: No Substance Use Type: None Hx Substance Use Treatment: No Review of Systems - Review of Systems Able to Perform ROS?: Yes Comments:: GENERAL/CONSTITUTIONAL: No fever or chills. No weakness HEAD, EYES, EARS, NOSE AND THROAT: No change in vision. No change in hearing. No sore throat CARDIOVASCULAR: No chest pain or shortness of breath RESPIRATORY: Denies cough, hemoptysis GASTROINTESTINAL: per HPI GENITOURINARY: +frequency; No dysuria MUSCULOSKELETAL: No joint or muscle swelling or pain. No neck or back pain SKIN: No rash NEUROLOGIC: No headache, loss of consciousness, or change in strength/sensation ENDOCRINE: No increased thirst. No abnormal weight change HEMATOLOGIC/LYMPHATIC: No anemia, easy bleeding, or history of blood clots ALLERGIC/IMMUNOLOGIC: No hives or skin allergy 09/24/19 17:01 Is the patient limited Sinhala proficient: No *Physical Exam - Physical Exam GENERAL: Awake, alert, and oriented to person/place/time, in no acute distress HEAD: No signs of trauma, normocephalic, atraumatic EYES: PERRLA, EOMI, sclera anicteric, conjunctiva clear ENT: Hearing grossly normal, nares patent, oropharynx clear without exudates. Moist mucosa LUNGS: No distress, speaks in full sentences, clear to auscultation bilaterally HEART: Regular rate and rhythm, normal S1 and S2, no murmurs appreciated, peripheral pulses normal and equal bilaterally ABDOMEN: Soft, LLQ TTP w/o rebound or guarding, normoactive bowel sounds EXTREMITIES: Normal inspection, Normal range of motion, no edema. No clubbing or cyanosis NEUROLOGICAL: Cranial nerves II through XII grossly intact. Normal speech, normal gait, no focal sensorimotor deficits SKIN: Warm, Dry 09/24/19 17:02 ED Treatment Course - LABORATORY CBC & Chemistry Diagram: 09/24/19 17:55 09/24/19 17:55 - RADIOLOGY Radiograph Interpretation: CT/ABDOMEN & PELVIS CT WITH CONTR Impression: No CT findings of acute diverticulitis or other acute pathology are identified. Status post sleeve gastrectomy. Status post cholecystectomy. CT/HEAD CT WITHOUT CONTRAST Impression: No CT evidence of acute intracranial pathology. The intracranial structures demonstrate no definite interval change in comparison to a prior CT study of 11/11/2017. 09/24/19 23:51 Medical Decision Making - Medical Decision Making The pt is a 49F w/ a history of depression, s/p gastric sleeve/paula/parital hys who presents for evaluation of 2 days of suprapubic/LLQ abdominal pain and urinary frequency. ED Course CMP, CBC, UA, UCx, Upreg ECG CT head w/o and A&P w/ IV IVF, Ofirmev 09/24/19 17:47 ECG w/ NSR; HR 88; QTc 428; no axis deviation; no PEPE No leukocytosis No anemia 09/24/19 18:27 UA w/o evidence of UTI, no hematuria 09/24/19 18:31 Lytes unremarkable No STACIE LFTs wnl 09/24/19 18:45 CT head and A&P overall unremarkable Pt feels improved at this time and would like to go home Plan for D/C w/ PCP f/u Discharge instructions and return precautions given Patient in agreement and verbalized understanding Dispo: Home 09/24/19 23:49 Discharge - Discharge Information Problems reviewed: Yes Clinical Impression/Diagnosis: Dizziness Abdominal pain Qualifiers: Abdominal location: left lower quadrant Qualified Code(s): R10.32 - Left lower quadrant pain Condition: Stable Disposition: HOME - Admission No - Follow up/Referral Referrals: Rex Guaman MD [Primary Care Provider] - Yonathan Brown MD [Staff Physician] - - Patient Discharge Instructions Patient Printed Discharge Instructions: DI for Abdominal Pain-Adult, DI for Dizziness-Nonvertigo Additional Instructions: You were seen in the Emergency Department for evaluation of abdominal pain. Your labs and imaging were unremarkable. Review the handouts provided at discharge. Follow up with your primary care provider and Neurologist. Return to the Emergency Department if you develop fevers/chills, chest pain, trouble breathing, inability to tolerate fluids, blood in your stool/vomit, worsening pain, worsening symptoms, or any new/concerning symptoms. - Post Discharge Activity
[2019-09-24 17:35] VITALS: BP 123/79; PULSE 95; TEMP 98.7; BMI 25.0
[2019-09-24] MEDS ORDERED: SODIUM CHLORIDE 0.9% 500 ML INFUS.BAG IV ONE (17:39)
[2019-09-24] MEDS ORDERED: ACETAMINOPHEN 1000 MG/100 ML VIAL (NON FORMULARY) IVPB ONE (17:39)
[2019-09-24] MEDS ORDERED: ACETAMINOPHEN INJECTION 100 ML IVPB ONE (18:05)
--- NOTE | 2019-09-24 18:17 | PDOC ---
Attending Attestation - Resident Resident Name: Jake Chavesan - ED Attending Attestation I have performed the following: I have examined & evaluated the patient, The case was reviewed & discussed with the resident, I agree w/resident's findings & plan, Exceptions are as noted - HPI HPI: 09/24/19 18:13 49-year-old female history of bipolar depression previous surgeries including a partial hysterectomy gastric sleeve cholecystectomy and anxiety here today complaining of left lower quadrant suprapubic pain. Patient states she has been having symptoms for a few days denies any moderating factor factors states she has had urinary frequency no dysuria has had chronic hematuria denies any history of kidney stones in the past no new sexual partners her last intercourse was 8 months ago has also been complaining of feeling very lightheaded denies vertigo and sit sensation but has been feeling off balance worse with going from a sitting to a standing and from a lying to sitting up no history of anemia no other complaints - Physicial Exam PE: 09/24/19 18:15 awake alert no acute distress lungs are clear bilaterally heart is regular with no murmurs rubs or gallops abdomen is soft there is left lower quadrant and suprapubic tenderness no rebound no guarding extremities are warm and well- perfused. Skin is warm and dry no rash neurologically the patient is awake alert and oriented x3 5 out of 5 strength all 4 extremities [id number] is normal bilaterally [id number] is normal alternating hand movements is normal negative Linden-Hallpike gait not tested - Medical Decision Making 09/24/19 18:16 49-year-old female history of gastric sleeve hysterectomy cholecystectomy bipolar here with complaining of lightheaded decreased p.o. intake and left lower quadrant pain. Minimal left lower quadrant tenderness on exam Differential diagnosis includes diverticulitis ovarian cysts UTI pyelonephritis renal colic. Plan CT abdomen pelvis IV hydration basic labs urine to rule out UTI will also add a head CT as the patient has been having this symptoms of feeling off balance and lightheaded for some time was for to have a head CT by her primary neurologist 09/24/19 22:[address] a/p negative for acute pathology. resolution of old hemorrhagic 4.5 cm cyst on right ovary. no longer present. ct head negative. will dc home. pt feels improved would like to go home. Heart Score/ECG Review #1 ECG reviewed & interpreted by me at: 22:02 General ECG Interpretation: Sinus Rhythm, Normal Rate (88), Normal Intervals, No acute ischemic changes
[2019-09-24 18:19] LABS: BASO % 1.1 % (0-2.0); EOS % 2.1 % (0-4.5); HEMATOCRIT 40.2 % (32.4-45.2); HEMOGLOBIN 13.1 GM/dL (10.7-15.3); LYMPH % 36.8 % (8-40); MCH 26.2 pg (25.7-33.7); MCHC 32.6 g/dl (32.0-36.0); MEAN CELL VOLUME 80.3 fl (80-96); MEAN PLT VOLUME 7.6 fl (7.5-11.1); PLATELET COUNT 259 K/MM3 (134-434); RBC 5.01 M/mm3 (3.60-5.2); RDW 13.8 % (11.6-15.6); WHITE BLOOD COUNT 7.3 K/mm3 (4.0-10.0)
[2019-09-24 18:28] LABS: URINE APPEARANCE CLEAR; URINE BILIRUBIN NEGATIVE (NEGATIVE); URINE COLOR YELLOW; URINE GLUCOSE (UA) NEGATIVE (NEGATIVE); URINE KETONE NEGATIVE (NEGATIVE); URINE LEUK ESTERASE NEGATIVE (NEGATIVE); URINE NITRITE NEGATIVE (NEGATIVE); URINE PROTEIN NEGATIVE (NEGATIVE); URINE UROBILINOGEN 0.2 mg/dL (0.2-1.0)
[2019-09-24 18:44] LABS: ALBUMIN 3.5 g/dl (3.4-5.0); BILIRUBIN,TOTAL 0.3 mg/dL (0.2-1); CALCIUM 8.8 mg/dL (8.5-10.1); CREATININE 0.8 mg/dL (0.55-1.3); POTASSIUM 3.8 mmol/L (3.5-5.1); TOT PROT 6.9 g/dl (6.4-8.2)
--- NOTE | 2019-09-25 12:47 | EKG ---
Test Reason : Blood Pressure : / mmHG Vent. Rate : 088 BPM Atrial Rate : 088 BPM P-R Int : 134 ms QRS Dur : 076 ms QT Int : 354 ms P-R-T Axes : 075 042 045 degrees QTc Int : 428 ms NORMAL SINUS RHYTHM POSSIBLE LEFT ATRIAL ENLARGEMENT POSSIBLE ANTERIOR INFARCT , AGE UNDETERMINED ABNORMAL ECG WHEN COMPARED WITH ECG OF 11-NOV-2017 09:42, T WAVE AMPLITUDE HAS DECREASED IN ANTERIOR LEADS Confirmed by GABE RAMOS MD ([id number]) on 09/25/2019 12:46:45 PM Referred By: Confirmed By:GABE RAMOS MD
== END 2019-09-24 22:09 | disposition home or self-care (01) ==
LOC: JER 16:50
PROC: 3E033NZ Introduction of Analgesics, Hypnotics, Sedatives into Peripheral Vein, Percutaneous Approach (ICD-10-PCS; principal; 2019-09-24)
DX: R42 Dizziness and giddiness (principal); R10.32 Left lower quadrant pain; D64.9 Anemia, unspecified; F41.9 Anxiety disorder, unspecified; F31.9 Bipolar disorder, unspecified; Z98.84 Bariatric surgery status; Z90.49 Acquired absence of other specified parts of digestive tract; Z90.710 Acquired absence of both cervix and uterus; Z88.1 Allergy status to other antibiotic agents
CPT/HCPCS: 36415; 70450-TC; 74177-TC; 80053; 81003; 84703; 85025; 87086; 93005; 93010; 96374; 99285-25; J0131; Q9967

== ENCOUNTER 2021-01-07 02:36 | Emergency (ER) | payer BC, OTHER ==
[2021-01-07 02:46] VITALS: BP 116/74; PULSE 84; TEMP 97.6; BMI 27.3
[2021-01-07] MEDS ORDERED: SODIUM CHLORIDE 1,000 ML IV STA (03:01)
[2021-01-07] MEDS ORDERED: ONDANSETRON 4 MG/2 ML VIAL IVPUSH ONE (03:01)
[2021-01-07] MEDS ORDERED: ONDANSETRON 4 MG/2 ML VIAL ONE (03:06)
[2021-01-07 04:22] LABS: EOS % 3.1 % (0-4.5); HEMOGLOBIN 12.7 GM/dL (10.7-15.3); LYMPH % 38.7 % (8-40); MCH 25.3 pg (25.7-33.7); MCHC 32.6 g/dl (32.0-36.0); MEAN CELL VOLUME 77.5 fl (80-96); MEAN PLT VOLUME 7.7 fl (7.5-11.1); MONO % 7.5 % (3.8-10.2); NEUT % 49.7 % (42.8-82.8); PLATELET COUNT 326 K/MM3 (134-434); RBC 5.03 M/mm3 (3.60-5.2); RDW 14.1 % (11.6-15.6); WHITE BLOOD COUNT 11.6 K/mm3 (4.0-10.0)
[2021-01-07 04:43] LABS: ALBUMIN 3.7 g/dl (3.4-5.0); CALCIUM 8.7 mg/dL (8.5-10.1)
[2021-01-07 04:46] LABS: CREATININE 0.9 mg/dL (0.55-1.3); URINE APPEARANCE CLOUDY; URINE BILIRUBIN NEGATIVE (NEGATIVE); URINE COLOR YELLOW; URINE GLUCOSE (UA) NEGATIVE (NEGATIVE); URINE KETONE TRACE (NEGATIVE); URINE PROTEIN TRACE (NEGATIVE)
[2021-01-07 04:47] LABS: EPI CELLS 78 /uL (0-25.1); HYALINE CASTS 4 /uL (0-3.1); URINE BACTERIA 1942 /uL (0-1359); URINE LEUK ESTERASE 1+ (NEGATIVE); URINE NITRITE NEGATIVE (NEGATIVE); URINE RBC 29 /uL (0-23.9); URINE WBC 93 /uL (0-25.8)
[2021-01-07 04:48] LABS: BILIRUBIN,TOTAL 0.3 mg/dL (0.2-1)
[2021-01-07 05:23] LABS: COCAINE, UR NEGATIVE ng/ml (CUTOFF=300); PHENCYCLIDINE,URINE NEGATIVE ng/ml (CUTOFF=25); URINE AMPHETAMINES NEGATIVE ng/ml (CUTOFF=500); URINE BARBITURATES NEGATIVE ng/ml (CUTOFF=200); URINE BENZODIAZEPINES NEGATIVE ng/ml (CUTOFF=200)
[2021-01-07 05:25] LABS: OPIATES, URI NEGATIVE ng/ml (CUTOFF=300)
[2021-01-07 05:26] LABS: METHADONE, UR NEGATIVE ng/ml (CUTOFF=300)
== END 2021-01-07 05:52 | disposition home or self-care (01) ==
LOC: FER 02:36
PROC: 3E033GC Introduction of Other Therapeutic Substance into Peripheral Vein, Percutaneous Approach (ICD-10-PCS; principal; 2021-01-07)
PROC: 3E0337Z Introduction of Electrolytic and Water Balance Substance into Peripheral Vein, Percutaneous Approach (ICD-10-PCS; 2021-01-07)
DX: E86.0 Dehydration (principal); N30.00 Acute cystitis without hematuria
CPT/HCPCS: 36415; 80053; 80307; 81003; 85025; 87086; 99284-25

== ENCOUNTER 2021-02-04 09:26 | Emergency (ER) | payer BC, OTHER ==
[2021-02-04 09:41] VITALS: BP 96/63; PULSE 89; TEMP 98.8; BMI 29.7
[2021-02-05 14:08] LABS: SARS-CoV-2 NAA Not Detected (Not Detected)
== END 2021-02-04 10:45 | disposition home or self-care (01) ==
LOC: FER 09:26
DX: R35.0 Frequency of micturition (principal); M54.9 Dorsalgia, unspecified; R14.0 Abdominal distension (gaseous)
CPT/HCPCS: 81003; 81015; 87086; 99283-25; C9803; U0003; U0005

== ENCOUNTER 2021-05-22 00:04 | Emergency (ER) | payer BC, OTHER ==
[2021-05-22 01:22] VITALS: BP 129/99; PULSE 86; TEMP 97.9; BMI 27.6
[2021-05-22] MEDS ORDERED: ACETAMINOPHEN 1000 MG/100 ML VIAL IVPB ONE (01:32)
[2021-05-22] MEDS ORDERED: SODIUM CHLORIDE 0.9% 500 ML INFUS.BAG IV ONE (01:32)
[2021-05-22] MEDS ORDERED: ACETAMINOPHEN INJECTION 100 ML IVPB ONE (01:50)
[2021-05-22 02:29] LABS: EPI CELLS 9 /uL (0-25.1); HYALINE CASTS 3 /uL (0-3.1); URINE APPEARANCE CLEAR; URINE BACTERIA 54 /uL (0-1359); URINE BILIRUBIN NEGATIVE (NEGATIVE); URINE COLOR YELLOW; URINE GLUCOSE (UA) NEGATIVE (NEGATIVE); URINE KETONE NEGATIVE (NEGATIVE); URINE LEUK ESTERASE NEGATIVE (NEGATIVE); URINE NITRITE NEGATIVE (NEGATIVE); URINE PROTEIN NEGATIVE (NEGATIVE); URINE RBC 80 /uL (0-23.9); URINE UROBILINOGEN 0.2 mg/dL (0.2-1.0); URINE WBC 6 /uL (0-25.8)
[2021-05-22 05:45] LABS: HIV INTERPRETATION NEGATIVE (NEGATIVE)
== END 2021-05-22 03:27 | disposition home or self-care (01) ==
LOC: JER 00:04
PROC: 3E0333Z Introduction of Anti-inflammatory into Peripheral Vein, Percutaneous Approach (ICD-10-PCS; principal; 2021-05-22)
DX: R30.0 Dysuria (principal)
CPT/HCPCS: 36415; 81003; 86695; 86696; 86704; 86706; 86780; 87086; 87340; 87389; 87491; 87517; 87522; 87591; 87661; 93005; 93010; 96374; 99284-25; J0131

== ENCOUNTER 2021-08-10 19:43 | Emergency (ER) | payer BC, OTHER ==
[2021-08-10] MEDS ORDERED: LIDOCAINE 5% TOPICAL PATCH TP ONE (20:13)
[2021-08-10] MEDS ORDERED: ACETAMINOPHEN 500 MG TABLET (FP) PO ONE (20:13)
[2021-08-10] MEDS ORDERED: LIDOCAINE 5% TOPICAL PATCH ONE (20:24)
[2021-08-10] MEDS ORDERED: ACETAMINOPHEN 325 MG TABLET (FP) ONE (20:24)
[2021-08-10 20:27] VITALS: BP 118/69; PULSE 65; TEMP 98; BMI 27.1
[2021-08-10 21:17] LABS: EPITHELIAL CELLS FEW /hpf
[2021-08-10] MEDS ORDERED: LIDOCAINE PATCH REMOVAL MC SCH (22:00)
== END 2021-08-10 21:34 | disposition home or self-care (01) ==
LOC: FER 19:43
DX: M54.50 Low back pain, unspecified (principal); R07.9 Chest pain, unspecified
CPT/HCPCS: 71046-TC-FY; 81003; 81015; 87086; 93005; 99285-25; C9803; U0003; U0005

== ENCOUNTER 2022-08-01 15:55 | Emergency (ER) | payer BC, OTHER ==
[2022-08-01 16:28] VITALS: BP 103/62; PULSE 68; RESP 18; TEMP 98.2; BMI 27.9
[2022-08-01 17:23] LABS: HEMATOCRIT 36.6 % (32.4-45.2); HEMOGLOBIN 12.4 G/dL (10.7-15.3); MCH 26.5 pg (25.7-33.7); MCHC 33.8 g/dl (32.0-36.0); MEAN CELL VOLUME 78.4 fl (80-96); PLATELET COUNT 257.2 10^3/uL (134-434); RBC 4.67 10^6/uL (3.60-5.2); RDW 15.2 % (11.6-15.6); WHITE BLOOD COUNT 6.6 10^3/uL (4.0-10.8)
[2022-08-01 17:28] LABS: ALBUMIN 3.7 g/dl (3.4-5.0); ALK PHOS 67 U/L (45-117); ANION GAP 7 MMOL/L (8-16); BILIRUBIN,TOTAL 0.5 mg/dl (0.2-1); CALCIUM 8.5 mg/dl (8.5-10); CHLORIDE 108 mmol/L (98-107); CO2 24 mmol/L (21-32); CREATININE 0.8 mg/dl (0.55-1.3); GLUCOSE,RANDOM 87 mg/dl (74-106); SGOT/AST 35 U/L (15-37); SGPT/ALT 17 U/L (13-61); SODIUM 139 mmol/L (136-145); TOT PROT 6.5 g/dl (6.4-8.2)
[2022-08-01 17:38] LABS: EPITHELIAL CELLS FEW /hpf
[2022-08-01 17:42] LABS: PLATELET ESTIMATE ADEQUATE
== END 2022-08-01 18:41 | disposition home or self-care (01) ==
LOC: FER 15:55
DX: R07.9 Chest pain, unspecified (principal)
CPT/HCPCS: 36415; 70450-TC; 71045-TC-FY; 80053; 81003; 81015; 84484; 85027; 93005; 99285-25

== ENCOUNTER 2022-09-30 10:46 | Emergency (ER) | payer MEDICARE, OTHER ==
[2022-09-30] MEDS ORDERED: KETOROLAC TROMETHAMINE 15 MG/ML VIAL ONE (10:57)
[2022-09-30 11:10] VITALS: BP 124/82; PULSE 108; RESP 18; TEMP 98.7; BMI 27.0
[2022-09-30] MEDS ORDERED: SODIUM CHLORIDE 0.9% 500 ML INFUS.BAG IV ONE (11:26)
[2022-09-30 11:51] LABS: HEMATOCRIT 41.7 % (32.4-45.2); HEMOGLOBIN 14.3 G/dL (10.7-15.3); MCH 26.7 pg (25.7-33.7); MCHC 34.3 g/dl (32.0-36.0); MEAN PLT VOLUME 7.7 fl (7.5-11.1); PLATELET COUNT 260.7 10^3/uL (134-434); RBC 5.35 10^6/uL (3.60-5.2); RDW 15.4 % (11.6-15.6); WHITE BLOOD COUNT 8.6 10^3/uL (4.0-10.8)
[2022-09-30 11:58] LABS: ALBUMIN 4.1 g/dl (3.4-5.0); BILIRUBIN,TOTAL 0.6 mg/dl (0.2-1); CALCIUM 9.3 mg/dl (8.5-10); CREATININE 0.7 mg/dl (0.55-1.3); TOT PROT 7.5 g/dl (6.4-8.2)
== END 2022-09-30 12:41 | disposition home or self-care (01) ==
LOC: FER 10:46
DX: R42 Dizziness and giddiness (principal); F41.9 Anxiety disorder, unspecified
CPT/HCPCS: 36415; 80053; 81003; 84484; 85027; 87086; 93005; 99285-25

== ENCOUNTER 2022-10-19 10:28 | Emergency (ER) | payer MEDICARE, OTHER ==
[2022-10-19 10:43] VITALS: RESP 16; TEMP 97.9; BMI 27.3
[2022-10-19 12:04] LABS: BASO % 0.8 % (0-2.0); EOS % 0.7 % (0-4.5); HEMATOCRIT 38.6 % (32.4-45.2); HEMOGLOBIN 12.8 GM/dL (10.7-15.3); LYMPH % 20.1 % (8-40); MCH 25.3 pg (25.7-33.7); MCHC 33.1 g/dl (32.0-36.0); MEAN CELL VOLUME 76.4 fl (80-96); MEAN PLT VOLUME 7.6 fl (7.5-11.1); MONO % 4.7 % (3.8-10.2); NEUT % 73.7 % (42.8-82.8); PLATELET COUNT 259 10^3/uL (134-434); RBC 5.04 M/mm3 (3.60-5.2); RDW 14.2 % (11.6-15.6); WHITE BLOOD COUNT 6.6 K/mm3 (4.0-10.0)
[2022-10-19 12:18] LABS: CALCIUM 8.5 mg/dL (8.5-10.1)
[2022-10-19 12:20] LABS: ALBUMIN 3.5 g/dl (3.4-5.0); BLOOD UREA NITROGEN 13.2 mg/dL (7-18)
[2022-10-19 12:23] LABS: CREATININE 0.8 mg/dL (0.55-1.3)
[2022-10-19 12:24] LABS: BILIRUBIN,TOTAL 0.3 mg/dL (0.2-1); TOT PROT 6.8 g/dl (6.4-8.2)
[2022-10-19 12:32] VITALS: BP 116/74; PULSE 82
== END 2022-10-19 13:08 | disposition home or self-care (01) ==
LOC: JER 10:28
DX: R42 Dizziness and giddiness (principal)
CPT/HCPCS: 36415; 80053; 84443; 85025; 93005; 93010; 99284-25

== ENCOUNTER 2022-11-23 21:14 | Emergency (ER) | payer MEDICARE, OTHER ==
[2022-11-23 21:31] VITALS: BP 115/80; PULSE 70; RESP 18; TEMP 97.9; BMI 27.3
[2022-11-23] MEDS ORDERED: CYCLOBENZAPRINE HCL 10 MG TABLET (FP) PO ONE (21:34)
[2022-11-23] MEDS ORDERED: ACETAMINOPHEN 500 MG TABLET (FP) PO ONE (21:34)
[2022-11-23] MEDS ORDERED: ACETAMINOPHEN 500 MG TABLET (FP) ONE (21:35)
[2022-11-23] MEDS ORDERED: CYCLOBENZAPRINE HCL 5 MG TABLET ONE (21:36)
== END 2022-11-23 21:39 | disposition home or self-care (01) ==
LOC: FER 21:14
DX: G44.229 Chronic tension-type headache, not intractable (principal); S50.12XA Contusion of left forearm, initial encounter; W01.0XXA Fall on same level from slipping, tripping and stumbling without subsequent striking against object, initial encounter
CPT/HCPCS: 99283-25

== ENCOUNTER 2023-09-03 22:35 | Emergency (ER) | payer OTHER ==
[2023-09-03 22:48] VITALS: BP 127/83; PULSE 102; RESP 18; TEMP 99.6; BMI 28.1
[2023-09-03] MEDS ORDERED: ACETAMINOPHEN 325 MG TABLET (FP) ONE (23:17)
[2023-09-03] MEDS ORDERED: DEXAMETHASONE SOD PHOSPHATE 10 MG/1 ML VIAL ONE (23:17)
[2023-09-03] MEDS: ACETAMINOPHEN 325 MG TABLET (FP) PO ONE (23:28)
[2023-09-03] MEDS: DEXAMETHASONE SOD PHOSPHATE 10 MG/1 ML VIAL IM ONE (23:28)
== END 2023-09-03 23:45 | disposition home or self-care (01) ==
LOC: FER 22:35
PROC: 3E023GC Introduction of Other Therapeutic Substance into Muscle, Percutaneous Approach (ICD-10-PCS; principal; 2023-09-03)
DX: R05.9 Cough, unspecified (principal); J02.9 Acute pharyngitis, unspecified; R07.9 Chest pain, unspecified; R50.9 Fever, unspecified; Z20.822 Contact with and (suspected) exposure to COVID-19
CPT/HCPCS: 0241U-QW; 96372; 99284-25; J1100

== ENCOUNTER 2023-10-08 10:14 | Emergency (ER) | payer OTHER ==
[2023-10-08 10:40] VITALS: BP 119/74; PULSE 85; RESP 18; TEMP 98.6; BMI 26.6
[2023-10-08 11:49] LABS: EOS % 2.2 % (0-4.5); HEMATOCRIT 39.7 % (32.4-45.2); HEMOGLOBIN 13.1 GM/dL (10.7-15.3); MCH 25.1 pg (25.7-33.7); MEAN PLT VOLUME 7.3 fl (7.5-11.1); MONO % 5.7 % (3.8-10.2); NEUT % 61.1 % (42.8-82.8); PLATELET COUNT 333 10^3/uL (134-434); RBC 5.22 M/mm3 (3.60-5.2); RDW 15.2 % (11.6-15.6); WHITE BLOOD COUNT 7.4 K/mm3 (4.0-10.0)
[2023-10-08 12:03] LABS: ACTIVATED PTT 34.1 SECONDS (25.2-36.5); INR 0.94 (0.83-1.09); PROTHROMBIN TIME (PATIENT) 10.9 SEC (9.7-13.0)
[2023-10-08 12:06] LABS: POTASSIUM 4.3 mmol/L (3.5-5.1)
[2023-10-08 12:09] LABS: ALBUMIN 3.5 g/dl (3.4-5.0); BLOOD UREA NITROGEN 17.7 mg/dL (7-18); CALCIUM 8.7 mg/dL (8.5-10.1); MAGNESIUM 2.1 mg/dL (1.8-2.4)
[2023-10-08 12:12] LABS: CREATININE 0.9 mg/dL (0.55-1.3)
[2023-10-08 12:13] LABS: BILIRUBIN,TOTAL 0.3 mg/dL (0.2-1); TOT PROT 7.6 g/dl (6.4-8.2)
== END 2023-10-08 12:35 | disposition home or self-care (01) ==
LOC: JER 10:14
DX: R00.1 Bradycardia, unspecified (principal); R53.83 Other fatigue; F41.9 Anxiety disorder, unspecified
CPT/HCPCS: 36415; 71046-TC-FY; 80053; 83735; 84439; 84443; 84484; 85025; 85610; 85730; 93005; 93010; 99285-25

== ENCOUNTER 2024-03-23 20:10 | Emergency (ER) | payer OTHER ==
[2024-03-23 20:31] VITALS: BP 123/74; PULSE 89; RESP 18; TEMP 97.8; BMI 30.5
[2024-03-23] MEDS: SODIUM CHLORIDE 1,000 ML IV STA (21:00)
[2024-03-23 21:05] LABS: HEMOGLOBIN 12.4 G/dL (10.7-15.3); MCH 23.8 pg (25.7-33.7); MCHC 30.9 g/dl (32.0-36.0); MEAN CELL VOLUME 77.2 fl (80-96); MEAN PLT VOLUME 8.1 fl (7.5-11.1); RBC 5.18 10^6/uL (3.60-5.2); RDW 16.3 % (11.6-15.6); WHITE BLOOD COUNT 7.4 10^3/uL (4.0-10.8)
[2024-03-23 21:15] LABS: PLATELET ESTIMATE ADEQUATE
[2024-03-23 21:23] LABS: ALBUMIN 3.7 g/dl (3.4-5.0); BILIRUBIN,TOTAL 0.3 mg/dl (0.2-1); CALCIUM 8.4 mg/dl (8.5-10.1); POTASSIUM 4.1 mmol/L (3.5-5.1); TOT PROT 6.4 g/dl (6.4-8.2)
[2024-03-23] MEDS ORDERED: ACETAMINOPHEN INJECTION 100 ML ONE (21:53)
[2024-03-23] MEDS: ACETAMINOPHEN 1000 MG/100 ML BAG IVPB ONE (21:56)
== END 2024-03-23 23:38 | disposition home or self-care (01) ==
LOC: FER 20:10
PROC: 3E033NZ Introduction of Analgesics, Hypnotics, Sedatives into Peripheral Vein, Percutaneous Approach (ICD-10-PCS; principal; 2024-03-23)
PROC: 3E0337Z Introduction of Electrolytic and Water Balance Substance into Peripheral Vein, Percutaneous Approach (ICD-10-PCS; 2024-03-23)
DX: K52.9 Noninfective gastroenteritis and colitis, unspecified (principal); R10.32 Left lower quadrant pain; R11.0 Nausea
CPT/HCPCS: 36415; 74177-TC; 80053; 81003; 85027; 96361; 96374; 99285-25; J0131; Q9967

== ENCOUNTER 2024-06-09 08:01 | Emergency (ER) | payer OTHER ==
[2024-06-09 08:08] VITALS: TEMP 99; BMI 30.8
[2024-06-09 08:34] LABS: EPI CELLS >36 /uL (0-25.1); HYALINE CASTS 1 /uL (0-3.1); URINE APPEARANCE CLEAR; URINE BACTERIA 1340 /uL (0-1359); URINE BILIRUBIN NEGATIVE (NEGATIVE); URINE COLOR YELLOW; URINE GLUCOSE (UA) NEGATIVE (NEGATIVE); URINE KETONE NEGATIVE (NEGATIVE); URINE LEUK ESTERASE 1+ (NEGATIVE); URINE NITRITE NEGATIVE (NEGATIVE); URINE PROTEIN NEGATIVE (NEGATIVE); URINE RBC 32 /uL (0-23.9); URINE UROBILINOGEN 0.2 mg/dL (0.2-1.0); URINE WBC 29 /uL (0-25.8)
[2024-06-09] MEDS ORDERED: ACETAMINOPHEN INJECTION 100 ML ONE (09:00)
[2024-06-09] MEDS: ACETAMINOPHEN 1000 MG/100 ML BAG IVPB ONE (09:05)
[2024-06-09 09:06] LABS: BASO % 0.9 % (0-2.0); EOS % 0.7 % (0-4.5); HEMATOCRIT 39.2 % (32.4-45.2); HEMOGLOBIN 12.9 GM/dL (10.7-15.3); LYMPH % 18.6 % (8-40); MCH 24.8 pg (25.7-33.7); MCHC 32.9 g/dl (32.0-36.0); MEAN CELL VOLUME 75.3 fl (80-96); MEAN PLT VOLUME 7.3 fl (7.5-11.1); NEUT % 74.8 % (42.8-82.8); PLATELET COUNT 285 10^3/uL (134-434); RBC 5.21 M/mm3 (3.60-5.2); RDW 14.4 % (11.6-15.6); WHITE BLOOD COUNT 6.4 K/mm3 (4.0-10.0)
[2024-06-09] MEDS ORDERED: ONDANSETRON 4 MG/2 ML VIAL ONE (09:29)
[2024-06-09 09:35] LABS: POTASSIUM 4.4 mmol/L (3.5-5.1)
[2024-06-09 09:37] LABS: CALCIUM 8.9 mg/dL (8.5-10.1)
[2024-06-09] MEDS: SODIUM CHLORIDE 1,000 ML IV STA (09:37)
[2024-06-09] MEDS: ONDANSETRON 4 MG/2 ML VIAL IVPUSH ONE (09:37)
[2024-06-09 09:38] LABS: ALBUMIN 3.6 g/dl (3.4-5.0); BLOOD UREA NITROGEN 11.3 mg/dL (7-18)
[2024-06-09 09:41] LABS: CREATININE 0.9 mg/dL (0.55-1.3)
[2024-06-09 09:42] LABS: BILIRUBIN,TOTAL 0.4 mg/dL (0.2-1)
[2024-06-09 10:40] LABS: EPI CELLS 4 /uL (0-25.1); HYALINE CASTS 0 /uL (0-3.1); PH,URINE 6.5 (5.0-8.0); URINE APPEARANCE CLEAR; URINE BACTERIA 10 /uL (0-1359); URINE BILIRUBIN NEGATIVE (NEGATIVE); URINE COLOR YELLOW; URINE GLUCOSE (UA) NEGATIVE (NEGATIVE); URINE KETONE NEGATIVE (NEGATIVE); URINE LEUK ESTERASE NEGATIVE (NEGATIVE); URINE NITRITE NEGATIVE (NEGATIVE); URINE PROTEIN NEGATIVE (NEGATIVE); URINE RBC 34 /uL (0-23.9); URINE UROBILINOGEN 0.2 mg/dL (0.2-1.0); URINE WBC 3 /uL (0-25.8)
[2024-06-09] MEDS ORDERED: cefTRIAXone SODIUM 1 GM VIAL ONE (12:49)
[2024-06-09] MEDS ORDERED: LIDOCAINE HCL 1%, 10 MG/ML (20ML VIAL) ONE (12:58)
[2024-06-09] MEDS ORDERED: AZITHROMYCIN 500 MG TABLET ONE (13:03)
[2024-06-09] MEDS: AZITHROMYCIN 500 MG TABLET PO ONE (13:21)
[2024-06-09 13:25] VITALS: BP 126/81; PULSE 75; RESP 20
[2024-06-09 17:20] LABS: HIV INTERPRETATION NEGATIVE (NEGATIVE)
== END 2024-06-09 13:25 | disposition home or self-care (01) ==
LOC: JERFT 08:01
PROC: 3E033NZ Introduction of Analgesics, Hypnotics, Sedatives into Peripheral Vein, Percutaneous Approach (ICD-10-PCS; principal; 2024-06-09)
PROC: 3E03329 Introduction of Other Anti-infective into Peripheral Vein, Percutaneous Approach (ICD-10-PCS; 2024-06-09)
PROC: 3E033GC Introduction of Other Therapeutic Substance into Peripheral Vein, Percutaneous Approach (ICD-10-PCS; 2024-06-09)
PROC: 3E0337Z Introduction of Electrolytic and Water Balance Substance into Peripheral Vein, Percutaneous Approach (ICD-10-PCS; 2024-06-09)
DX: R10.2 Pelvic and perineal pain (principal); N89.8 Other specified noninflammatory disorders of vagina; R30.0 Dysuria
CPT/HCPCS: 36415; 74177-TC; 80053; 81003; 84703; 85025; 86803; 87086; 87389; 87491; 87591; 87661; 96361; 96372; 96374; 96375; 99285-25; J0131; Q9967

== ENCOUNTER 2024-11-24 11:47 | Emergency (ER) | payer OTHER ==
[2024-11-24 11:59] VITALS: BP 118/77; RESP 19; TEMP 99; BMI 29.0
[2024-11-24] MEDS ORDERED: ACETAMINOPHEN 325 MG TABLET (FP) ONE (12:45)
[2024-11-24] MEDS: ACETAMINOPHEN 500 MG TABLET (FP) PO ONE (12:57)
[2024-11-24 13:20] LABS: ABSOLUTE IMMATURE GRANULOCYTES 0.01 x10^3/uL (0.0-0.031); BASOPHILS # 0.07 x10^3/uL (0.01-0.08); EOSINOPHIL % 1.6 % (0.7-5.8); EOSINOPHILS # 0.11 x10^3/uL (0.04-0.36); HEMATOCRIT 39.6 % (34.1-44.9); HEMOGLOBIN 12.3 g/dL (11.2-15.7); MCHC 31.1 g/dl (32.2-35.5); MEAN CELL VOLUME 77.6 fl (79.4-94.8); MEAN PLT VOLUME 8.9 fl (9.4-12.3); MONOCYTE # 0.39 x10^3/uL (0.24-0.86); MONOCYTE % 5.6 % (4.7-12.5); PLATELET COUNT 292 x10^3/uL (182-369)
[2024-11-24 13:43] LABS: POTASSIUM 3.9 mmol/L (3.5-5.1)
[2024-11-24 13:50] LABS: ALBUMIN 3.2 g/dl (3.4-5.0); BLOOD UREA NITROGEN 11.2 mg/dL (7-18); CALCIUM 8.9 mg/dL (8.5-10.1)
[2024-11-24 13:53] LABS: CREATININE 0.8 mg/dL (0.55-1.3)
[2024-11-24 13:55] LABS: BILIRUBIN,TOTAL 0.3 mg/dL (0.2-1); TOT PROT 6.2 g/dl (6.4-8.2)
[2024-11-24 14:23] LABS: EPI CELLS 5 /uL (0-25.1); HYALINE CASTS 0 /uL (0-3.1); URINE APPEARANCE CLEAR; URINE BACTERIA 265 /uL (0-1359); URINE BILIRUBIN NEGATIVE (NEGATIVE); URINE COLOR YELLOW; URINE GLUCOSE (UA) NEGATIVE (NEGATIVE); URINE KETONE TRACE (NEGATIVE); URINE LEUK ESTERASE NEGATIVE (NEGATIVE); URINE NITRITE NEGATIVE (NEGATIVE); URINE PROTEIN NEGATIVE (NEGATIVE); URINE RBC 7 /uL (0-23.9); URINE UROBILINOGEN 0.2 mg/dL (0.2-1.0); URINE WBC 8 /uL (0-25.8)
[2024-11-24 14:45] VITALS: PULSE 77
== END 2024-11-24 14:52 | disposition home or self-care (01) ==
LOC: JER 11:47
DX: R00.2 Palpitations (principal); M79.10 Myalgia, unspecified site; R00.0 Tachycardia, unspecified; R07.89 Other chest pain; R30.0 Dysuria
CPT/HCPCS: 36415; 71046-TC-FY; 80053; 81003; 84443; 84484; 85025; 87086; 93005; 93010; 99285-25